=== PATIENT | female | born 1950 | race Two or more races ===

== ENCOUNTER 2024-06-13 16:43 | Inpatient (IN) | payer MEDICARE, MEDICAID, SELFPAY ==
[2024-06-13] VITALS (14 sets, daily range): BP systolic 91–124; BP diastolic 55–82; PULSE 107–166; RESP 18–27; TEMP 38.1–39.1; O2SAT 89–100; BMI 35.6
--- NOTE | 2024-06-13 16:54 | EKG_ITS ---
[facility], [place] Test Date: 2024-06-13 Pat Name: LAYTON ROA Department: Room: - Gender: Female Application Coordinator: : 1950 Requested By: Dolores Trevino Order Number: [id number] Reading MD: Dolores Trevino Measurements Intervals [place] Rate: 162 P: HI: QRS: 41 QRSD: 76 T: -69 QT: 247 QTc: 406 Interpretive Statements ATRIAL FIBRILLATION WITH RAPID VENTRICULAR RESPONSE ST DEVIATION AND MODERATE T-WAVE ABNORMALITY, CONSIDER INFERIOR ISCHEMIA [-0.1+ mV T WAVE IN II/aVF] Compared to ECG 11/12/2021 15:39:57 Possible ischemia now present T-wave abnormality still present /store/S0/[id number]/ecg/[id number].pdf
--- NOTE | 2024-06-13 16:54 | XR_ITS ---
Examination: AP chest single view Technique one AP portable semiupright chest single view Exam date and time: June 13, 2024 Comparison November 12, 2021 INDICATIONS: Onset chest pain today. FINDINGS: Mild enlargement cardiac contour Significant vascular congestion. No lobar pneumonia. Prominent osteopenia IMPRESSION: Mild heart failure
--- NOTE | 2024-06-13 17:01 | EDNOTE_ITS ---
ED General RME/HPI General Chief complaint: Arrhythmia/Palpitations Stated complaint: TACHYCARDIA Time Seen by Provider: 06/13/24 16:54 Arrival date/time: 06/13/24 16:43 RME / HPI RME / HPI narrative: DR. CLEARY MAIN ED EVALUATION: 73 year old female with past medical history significant for chronic atrial fibrillation on Eliquis, hypertension, hypothyroidism, schizoaffective disorder, CAD, COPD, type II diabetes mellitus presents to the Emergency Department [facility] with complaint of palpitations. Patient coming in from [facility] for tachycardia after albuterol was given. Related Data Home Medications ?Medication ?Instructions ?Recorded ?Confirmed divalproex 500 mg tablet,delayed 1,000 mg PO QDAY BIPOLAR #0 mg 08/13/13 12/18/21 release (Depakote) levothyroxine 75 mcg tablet 75 mcg PO QAM THYROID ##0 08/13/13 12/18/21 aspirin 325 mg tablet 325 mg PO QDAY HEART #0 tabs 08/05/14 12/18/21 bisacodyl 10 mg rectal suppository 10 mg MS Q72H PRN Constipation #0 10/07/14 12/18/21 ea magnesium hydroxide 400 mg/5 mL 30 ml PO Q72H PRN CONSTIPATION #0 10/07/14 12/18/21 oral suspension (Milk of Magnesia) mL aripiprazole 10 mg tablet (Abilify) 10 mg PO QDAY 10/02/19 12/18/21 hydrocodone 5 mg-acetaminophen 325 1 tab PO Q6H PRN Pain 10/02/19 12/18/21 mg tablet acetaminophen 325 mg tablet 325 mg PO Q6H PRN Pain 04/30/21 12/18/21 apixaban 2.5 mg tablet (Eliquis) 2.5 mg PO BID 10/21/21 12/18/21 furosemide 20 mg tablet (Lasix) 20 mg PO BID 10/21/21 12/18/21 sodium phosphates 19 gram-7 118 ml MS Q72H PRN Constipation 11/12/21 12/18/21 gram/118 mL enema (Fleet Enema) losartan 25 mg tablet 25 mg PO QDAY 12/18/21 12/18/21 metoprolol tartrate 50 mg tablet 50 mg PO BID 12/18/21 12/18/21 Previous Rx's ?Medication ?Instructions ?Recorded ipratropium 0.5 mg-albuterol 3 mg 3 ml INH Q4H PRN shortness of 10/04/19 (2.5 mg base)/3 mL nebulization breath or wheezing #15 mL soln rosuvastatin 40 mg tablet 40 mg PO .qhs #30 tabs 10/29/21 calcium acetate 667 mg tablet 667 mg PO QDAY #5 tabs 12/20/21 (Calphron) Allergies Allergy/AdvReac Type Severity Reaction Status Date / Time iodine Allergy Severe IODINE Verified 06/13/24 17:28 CONTRAST - SWELLS LIKE A STRAWBERRY Review of Systems Review of Systems Systems Reviewed: All systems reviewed, normal except as documented Narrative Review of Systems: GEN: No fever, no chills, no weight loss EYES: No discharge, no visual changes, no pain HEENT: No ear pain, no congestion, no sore throat PULM: No shortness of breath, no cough, no congestion CV: No chest pain, no dyspnea on exertion, + palpitations GI: No nausea, no vomiting, no diarrhea, no pain, no constipation : No frequency, no urgency and no dysuria MUSC/SKEL: No joint pain, no back pain SKIN: No rash PSYCH: No hallucinations, no depression HEME/LYMPH: No easy bleeding or bruising tendencies NEURO: No weakness, no headache Past Medical History Past Medical History NEUROLOGIC: Positive Neurological Disorders, Cerebrovascular Accident and Dementia CARDIAC: Positive Cardiac Disorders, Hypercholesterolemia and Hypertension; Negative Congestive Heart Failure RESPIRATORY: Positive Chronic Obstructive Pulmonary Disease (COPD); Negative Asthma GASTROINTESTINAL: Negative Gastrointestinal Disorders GENITOURINARY: Negative Genitourinary Disorders or Renal Disease REPRODUCTIVE: Negative Pelvic Inflammatory Disease MUSCULOSKELETAL: Positive Musculoskeletal Disorders, Arthritis, Osteoporosis, Degenerative Disk Disease and Fractures ENDOCRINE: Positive Endocrine Disorders, Diabetes Mellitus Type 2 and Hypothyroidism; Negative Diabetes Mellitus Type 1 HEMATOLOGIC: Negative Sickle Cell Disease PSYCHO/SOCIAL: Positive Psychiatric Problems, Schizophrenia, Bipolar Disorder and Behavior Problems OTHER HISTORY: Positive Hospitalization; Negative Organ Transplant Surgical History SURGICAL: Negative Cardiac Surgery, Endocrine Surgery, Thyroidectomy, Ear Surgery, Abdominal Surgery, Nephrectomy, Joint Replacement, Neurologic Surgery, Mastectomy or Organ Transplant Social History SMOKING STATUS: Unknown if ever smoked ED Exam Narrative Physical exam: GENERAL APPEARANCE: alert and oriented, well-developed, well-nourished, no acute distress; febrile, 102.4 F. VITALS: All vitals were reviewed and the pulse ox is 98% on 6 L/min via a nasal cannula HEENT: Normocephalic, atraumatic; pupils equal, round, reactive to light; EOMI; mucous membranes pink, moist; oropharynx clear NECK: Supple LUNGS: CTABL; no wheezes, no rales, no rhonchi HEART: Tachycardic, 156; normal S1, S2; no murmurs ABDOMEN: non distended; normal BS; soft, no tenderness, no guarding, no rebound; no masses, no organomegaly, no hernia BACK: no CVA tenderness EXTREMITIES: atraumatic; no edema NEUROLOGIC: awake; alert; cranial nerves II-XII grossly intact PSYCHIATRIC: appropriate mood and affect SKIN: warm, dry, normal color; no rashes Course Course Course Narrative: 1726: Sepsis alert initiated. Orders made at this time are congruent with ED Adult Sepsis Order List. Re-evaluation is to be completed. 1754: Fluids started. 1824: Sepsis reassessment performed consisting of lab review, vitals, physical exam including auscultation of heart, lungs, and visual evaluation of capillary refills, mucosal membranes and extremities. 1800: Patient was signed out to Dr. Santos. Past medical, surgical, social and family history reviewed. Vitals and home medications reviewed. Results and treatment plan discussed. They will assume the care of the patient at this time and will follow the patient, pending diagnostic tests and final disposition. Quality Measures none Orders Category Date Time Status Bedside COVID-19 Antigen Test NOW Care 06/13/24 16:54 Active Bedside Influenza A&B Antigen Test NOW Care 06/13/24 16:54 Active Outpatient Scheduler NOW Care 06/13/24 16:54 Active EKG (ED ONLY) *Do not use* NOW Care 06/13/24 16:54 Completed EKG (ED Only) Stat Exams 06/13/24 16:54 Draft XR chest 1V portable Stat Exams 06/13/24 16:54 Completed B-Type Natriuretic Peptide Stat Lab 06/13/24 17:15 Completed Blood Culture (Lab) Stat Lab 06/13/24 17:10 Received CBC Stat Lab 06/13/24 17:15 Completed Comprehensive Metabolic Panel Stat Lab 06/13/24 17:15 Completed Lactate (Lactic Acid) Stat Lab 06/13/24 17:15 Results Lipase Stat Lab 06/13/24 17:15 Completed Magnesium Stat Lab 06/13/24 17:15 Completed Partial Thromboplastin Time Stat Lab 06/13/24 17:15 Completed Procalcitonin Stat Lab 06/13/24 17:15 Completed Prothrombin Time with INR Stat Lab 06/13/24 17:15 Completed Troponin I Stat Lab 06/13/24 17:15 Completed Urinalysis Stat Lab 06/13/24 16:54 Ordered Urine Culture Stat Lab 06/13/24 16:54 Ordered Acetaminophen Tab [Tylenol ES Tab] Med 06/13/24 17:03 Discontinued 1,000 mg PO X1 ONE Sodium Chloride 0.9% 1000 ml [Ns] 1,000 ml Med 06/13/24 16:54 Discontinued IV 999 mls/hr Vital Signs Vital signs: Vital Signs Temperature 102.4 F H 06/13/24 16:54 Pulse Rate 156 H 06/13/24 16:54 Respiratory Rate 20 06/13/24 16:54 Blood Pressure 122/80 06/13/24 16:54 Pulse Oximetry (%) 98 06/13/24 16:54 Oxygen Delivery Method Nasal Cannula 06/13/24 16:54 Oxygen Flow Rate 6 06/13/24 16:54 [facility] Patient data External records reviewed:: [facility] previous records (Reviewed last admission discharge dated 12/21/21, patient admitted for the following: Right groin mass, Sepsis secondary to UTI, Bipolar 1 disorder) and EMS form Clinical information provided by:: patient and EMS Social determinants that could affect healthcare access:: housing ([facility]) Patient has the following chronic illnesses:: chronic atrial fibrillation on Eliquis, hypertension, hypothyroidism, schizoaffective disorder, CAD, COPD, type II diabetes mellitus How is presenting disease/condition affected by chronic disease/condition?: e xacerbated by Evaluation data The following diagnostics were reviewed and interpreted by me:: lab results, radiology exam(s) and EKG tracing(s) Lab and/or radiology exams considered but not ordered:: none Interpretation Summary: Procedure(s): XR chest 1V portable Accession Number(s): [id number] cc: Hasmukh Ko MD; Dolores Cleary MD; Munir Lopez MD~ Examination: AP chest single view Technique one AP portable semiupright chest single view Exam date and time: June 13, 2024 Comparison November 12, 2021 INDICATIONS: Onset chest pain today. FINDINGS: Mild enlargement cardiac contour Significant vascular congestion. No lobar pneumonia. Prominent osteopenia IMPRESSION: Mild heart failure Dictated By: Hasmukh Ko MD Medications Medications considered but not ordered:: none Medication administrations:: Medication Administration History Discontinued Medications Acetaminophen (Acetaminophen 500 Mg Tablet) 1,000 mg PO X1 ONE Stop: 06/13/24 17:04 Sodium Chloride (Ns) 1,000 mls @ 999 mls/hr IV .Q1H1M ONE Stop: 06/13/24 17:54 see above Consultations Consultation(s) initiated? (list below): No Diagnosis Differential Diagnosis ED Complaint MDM: cardiac arrhythmias, anxiety, secondary effect to medication Most likely diagnosis given after review of the tests above:: No official diagnoses at this time, still pending diagnostic tests. Patient signout to the shift boss provider. Admission Indicated Admission indicated?: not indicated Explain why admission is indicated or not indicated:: No final disposition plan at this time, still pending diagnostic tests. Patient signout to the shift boss provider. Admission Request Was there a request for admission?: No Disposition Plan Disposition Plan: other (specify) (Patient signout to the shift boss provider. ) Medical Decision Making Differential Diagnosis Differential Diagnosis: cardiac arrhythmias, anxiety, secondary effect to medication Lab Data 06/13/24 17:15 06/13/24 17:15 Labs: Lab Results 06/13/24 Range/Units 17:15 WBC 10.5 (3.6-11.0) Thou/mm3 RBC 3.33 L (4.00-5.20) Miln/mm3 Hgb 11.5 L (12.0-16.0) g/dL Hct 35.3 L (36.0-46.0) % MCV 106 H (80-100) fL MCH 34.5 (25.0-35.0) pg MCHC 32.6 (31.0-37.0) g/dl RDW Std Deviation 55.8 H (36.4-46.3) fL Plt Count 92 L (140-440) Thou/mm3 Neut % (Auto) 82 H (37-80) % Lymph % (Auto) 11 (10-50) % [place] % (Auto) 5 (0-12) % Eos % (Auto) 0 (0-10) % Baso % (Auto) 0 (0-2.5) % Neut # (Auto) 8.6 H (1.8-7.7) Thou/mm3 Lymph # (Auto) 1.2 (1.0-4.8) Thou/mm3 [place] # (Auto) 0.5 (0.0-0.8) Thou/mm3 Eos # (Auto) 0.0 (0.0-0.5) Thou/mm3 Baso # (Auto) 0.0 (0.0-0.2) Thou/mm3 Immature Gran # (Auto) 0.14 H (0.00-0.00) Thou/mm3 Absolute Nucleated RBC 0.02 H (0.00-0.00) Thou/mm3 Immature Gran % 1 H (0-0) % Nucleated RBC % 0 (0) /100 WBC PT 12.3 H (9.0-12.2) Seconds INR 1.1 (0.9-1.3) APTT 30.8 (22.0-36.0) Seconds Sodium 134 L (136-145) mMol/L Potassium 3.9 (3.4-5.1) mMol/L Chloride 97 L (98-107) mMol/L Carbon Dioxide 28.8 (20.0-31.0) mMol/L Anion Gap 8 (7-16) BUN 20 (9-23) mg/dL Creatinine 0.7 (0.6-1.3) mg/dL Estim Creat Clear Calc Not Performed. eGFR > 60 (60 - ) See Note BUN/Creatinine Ratio 29 H (12-20) Ratio Glucose 144 H (74-106) mg/dL Calculated Osmolality 273 L (275-295) Lactic Acid 2.7 H (0.4-2.0) mMol/L Calcium 9.0 (8.3-10.6) mg/dL Corrected Calcium 9.1 (8.5-10.1) mg/dL Magnesium 2.1 (1.6-2.6) mg/dL Total Bilirubin 0.9 (0.3-1.2) mg/dL AST 14 (0-34) U/L ALT < 7 L (10-49) U/L Alkaline Phosphatase 64 (46-116) U/L Troponin I < 0.020 (0.0-0.045) ng/mL B-Natriuretic Peptide 212 H (0-100) pg/mL Total Protein 7.1 (5.7-8.2) gm/dL Albumin 3.9 (3.4-4.8) gm/dL Globulin 3.2 (2.3-3.5) gm/dL Albumin/Globulin Ratio 1.2 (1.2-2.2) Lipase 28 (12-53) U/L Procalcitonin 0.21 (0.0-0.49) ng/ml Critical Care Time Critical Care Time Critical Care Time: Yes Total Critical Care Time (min.): 30 Attestation: For sepsis The high probability of sudden, clinically significant deterioration in the patient?s condition required the highest level of my preparedness to intervene urgently. The services I provided to this patient were to treat and/or prevent clinically significant deterioration. Services included the following: chart data review, reviewing nursing notes and/or old charts, documentation time, golf tournament consultant collaboration regarding findings and treatment options, medication orders and management, direct patient care, vital sign assessments and ordering, interpreting and reviewing diagnostic studies and lab tests. Aggregate critical care time includes only time during which I was engaged in work directly related to the patient?s care, as described above, whether at bedside or elsewhere in the Emergency Department. It did not include time spent performing other reported procedures or the services of residents, students, nurses or physician assistants. Discharge Plan Prescriptions/Referrals Prescriptions/Med Rec: No Action divalproex [Depakote] 500 MG tablet,delayed release (DR/EC) 1,000 mg PO QDAY Qty: 0 Rx Instructions: TAKE 2 TABLETS BY MOUTH ONE TIME A DAY FOR BIPOLAR DISORDER levothyroxine 75 mcg Tablet 75 mcg PO QAM Qty: 0 aspirin 325 MG tablet 325 mg PO QDAY Qty: 0 magnesium hydroxide [Milk of Magnesia] 30 ML/CUP suspension 30 ml PO Q72H PRN (Reason: CONSTIPATION) Qty: 0 bisacodyl 10 mg Suppository 10 mg MS Q72H PRN (Reason: Constipation) Qty: 0 Rx Instructions: Insert 10 mg rectally every 72 hours as needed for constipation if MOM ineffective- give as 1 suppository aripiprazole [Abilify] 10 mg Tablet 10 mg PO QDAY hydrocodone-acetaminophen 5-325 mg Tablet 1 tab PO Q6H PRN (Reason: Pain) Rx Instructions: Give 1 tablet by mouth every 6 hours as needed for breakthrough pain (level 4-10) (Acetaminophen not to exceed 3gm/24hrs) ipratropium-albuterol 0.5 mg-3 mg(2.5 mg base)/3 mL Solution For Nebulization 3 ml INH Q4H PRN (Reason: shortness of breath or wheezing) Qty: 15 0RF losartan 25 mg tablet 25 mg PO QDAY metoprolol tartrate 50 mg tablet 50 mg PO BID calcium acetate [Calphron] 667 mg tablet 667 mg PO QDAY Qty: 5 0RF acetaminophen 325 mg Tablet 325 mg PO Q6H PRN (Reason: Pain) furosemide [Lasix] 20 mg Tablet 20 mg PO BID Eliquis 2.5 mg Tablet 2.5 mg PO BID rosuvastatin 40 mg tablet 40 mg PO .qhs Qty: 30 0RF Fleet Enema 19-7 gram/118 mL Enema 118 ml MS Q72H PRN (Reason: Constipation) Referrals: Munir Lopez MD [Primary Care Provider] - In 1 week Patient/Caregiver Discharge Instructions Print Language: Georgian
[2024-06-13 17:26] LABS: Lactate (Lactic Acid) 2.7 mMol/L (0.4-2.0)
[2024-06-13 17:27] LABS: Basophils % (Auto) 0 % (0-2.5); Eosinophils % (Auto) 0 % (0-10); Hematocrit 35.3 % (36.0-46.0); Hemoglobin 11.5 g/dL (12.0-16.0); Immature Granulocytes % (Auto) 1 % (0-0); Immature Granulocytes Auto 0.14 Thou/mm3 (0.00-0.00); Lymphocytes # (Auto) 1.2 Thou/mm3 (1.0-4.8); Lymphocytes % (Auto) 11 % (10-50); Mean Corpuscular HGB Conc 32.6 g/dl (31.0-37.0); Mean Corpuscular Hemoglobin 34.5 pg (25.0-35.0); Mean Corpuscular Volume 106 fL (80-100); Monocytes # (Auto) 0.5 Thou/mm3 (0.0-0.8); Monocytes % (Auto) 5 % (0-12); Neutrophils # (Auto) 8.6 Thou/mm3 (1.8-7.7); Neutrophils % (Auto) 82 % (37-80); Nucleated Red Blood Cell # 0.02 Thou/mm3 (0.00-0.00); Nucleated Red Blood Cell % 0 /100 WBC (0); Platelet Count 92 Thou/mm3 (140-440); RDW Standard Deviation 55.8 fL (36.4-46.3); Red Blood Count 3.33 Miln/mm3 (4.00-5.20); White Blood Count 10.5 Thou/mm3 (3.6-11.0)
--- NOTE | 2024-06-13 17:30 | PC.NURSE ---
PT BIBA FOR HIGH HR AFTER [facility] PT PRESENTS HERE WITH AFIB RVR AND HIGH TEMP. PT IS SLIGHTLY CONFUSED AND REPEATING WORDS WHEN SPEAKING TO HER. PT IS BEDBOUND [facility] 14. SEPSIS ALERT INITIATED AND ROMEO ASSESSING PT. NEW ORDERS GIVEN.
[2024-06-13 17:45] LABS: INR 1.1 (0.9-1.3); Partial Thromboplastin Time 30.8 Seconds (22.0-36.0); Prothrombin Time 12.3 Seconds (9.0-12.2)
[2024-06-13 17:53] LABS: B-Type Natriuretic Peptide 212 pg/mL (0-100)
[2024-06-13 18:07] LABS: Alanine Aminotransferase < 7 U/L (10-49); Albumin, Serum 3.9 gm/dL (3.4-4.8); Albumin/Globulin Ratio 1.2 (1.2-2.2); Alkaline Phosphatase 64 U/L (46-116); Anion Gap 8 (7-16); Aspartate Amino Transferase 14 U/L (0-34); BUN/Creatinine Ratio 29 Ratio (12-20); Bilirubin,Total 0.9 mg/dL (0.3-1.2); Blood Urea Nitrogen 20 mg/dL (9-23); Calcium (Corrected) 9.1 mg/dL (8.5-10.1); Carbon Dioxide 28.8 mMol/L (20.0-31.0); Chloride 97 mMol/L (98-107); Creatinine (Component) 0.7 mg/dL (0.6-1.3); Globulin 3.2 gm/dL (2.3-3.5); Glucose 144 mg/dL (74-106); Lipase 28 U/L (12-53); Magnesium 2.1 mg/dL (1.6-2.6); Osmolality,Calculated 273 (275-295); Potassium 3.9 mMol/L (3.4-5.1); Procalcitonin 0.21 ng/ml (0.0-0.49); Sodium 134 mMol/L (136-145); Total Protein 7.1 gm/dL (5.7-8.2); Troponin I < 0.020 ng/mL (0.0-0.045); eGFR > 60 See Note
[2024-06-13 18:17] LABS: Collection Type, Urine Clean Catch
[2024-06-13] MEDS: ACETAMINOPHEN 500 MG TABLET 1000 MG PO (18:17)
[2024-06-13] MEDS: SODIUM CHLORIDE 0.9% 1000 ML 1,000 ML 999 ML IV (18:17)
--- NOTE | 2024-06-13 18:17 | PD.EDADDENDU ---
Emergency Room Addendum <Neeru Gomez - Last Filed: 06/13/24 21:54> Addendum Narrative: 1800: Care assumed from Dr. Cleary, the previous shift emergency physician. Past medical, surgical, social and family history reviewed. Vitals and home medications reviewed. I will assume the care of the patient at this time, pending diagnostic tests and final disposition. Please refer to the emergency department record for history and examination from initial visit.? Physical exam by me shows patient under no acute distress at this time. EKG: Dated 06/13/2024 at 1723 hours. Interpreted by me: atrial fibrillation, rate 162, atrial fibrillation with RVR, ST-T wave changes in V 4-5. RADIOLOGY Procedure(s): XR chest 1V portable Accession Number(s): [id number] cc: Hasmukh Ko MD; Dolores Cleary MD; Munir Lopez MD~ Examination: AP chest single view Technique one AP portable semiupright chest single view Exam date and time: June 13, 2024 Comparison November 12, 2021 INDICATIONS: Onset chest pain today. FINDINGS: Mild enlargement cardiac contour Significant vascular congestion. No lobar pneumonia. Prominent osteopenia IMPRESSION: Mild heart failure Dictated By: Hasmukh Ko MD <Shanita Basilio - Last Filed: 06/14/24 00:28> Addendum Narrative: 1800: Care assumed from Dr. Cleary, the previous shift emergency physician. Past medical, surgical, social and family history reviewed. Vitals and home medications reviewed. I will assume the care of the patient at this time, pending diagnostic tests and final disposition. Please refer to the emergency department record for history and examination from initial visit.? Physical exam by me shows patient under no acute distress at this time. EKG: Dated 06/13/2024 at 1723 hours. Interpreted by me: atrial fibrillation, rate 162, atrial fibrillation with RVR, ST-T wave changes in V 4-5. 2145: Discussed case with [Dr. Coronado] from Hospitalist service regarding admission. Discussed patients ED course, exam findings, labs, and radiology results. The Hospitalist [agrees] to accept the patient for admission. RADIOLOGY Procedure(s): XR chest 1V portable Accession Number(s): [id number] cc: Hasmukh Ko MD; Dolores Cleary MD; Munir Lopez MD~ Examination: AP chest single view Technique one AP portable semiupright chest single view Exam date and time: June 13, 2024 Comparison November 12, 2021 INDICATIONS: Onset chest pain today. FINDINGS: Mild enlargement cardiac contour Significant vascular congestion. No lobar pneumonia. Prominent osteopenia
[2024-06-13 18:40] LABS: Bilirubin,Urine Negative (Negative); Blood,Urine Trace (Negative); Clarity,Urine Clear (Clear/Hazy); Color,Urine Yellow (Lt Yel-Yel); Glucose, Urine Negative (Negative); Ketones,Urine Trace (Negative); Leukocyte Esterase,Urine Negative (Negative); Nitrite,Urine Negative (Negative); Protein,Urine 2+ (Neg - Trace); RBC,Urine 5 /hpf (0-3); Specific Gravity,Urine 1.026 (1.001-1.035); Squamous Epithelial Cell,Urine 1 /hpf (0-5); WBC,Urine 3 /hpf (0-5)
[2024-06-13 20:24] LABS: Reflex Lactate? Y
[2024-06-13 20:58] LABS: Lactic Acid, 3 HR 1.4 mMol/L (0.4-2.0)
--- NOTE | 2024-06-13 21:27 | PC.NURSE ---
Informed MD Raman of pt being in AFIB RVR with a HR rate of 125-150's and BP 124/76. New orders of cardizem 5mg ivp verbally given by .
[2024-06-13] MEDS: DILTIAZEM INJ 5 MG/ML VIAL 5 ML IV (21:36)
--- NOTE | 2024-06-13 21:58 | ESHP_ITS ---
Documentation for date of: 06/13/24 HPI History of Present Illness Chief complaint: Tachycardia History of present illness: HPI: Patient is a poor historian and resident of [facility]. Majority of history obtained from chart review and her nurse at rehab facility. 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 According to patient's nurse from the SNF today patient had generalized weakness and was assessed by the respiratory therapist at the facility. The heart team at the facility thought the patient had a cardiac wheeze and administered an albuterol nebulization. Subsequently patient developed tachycardia with rates in the 160s?170s. ED course: BP 107/55, pulse 130, RR 22, temp 102.4 F, SpO2 98% on 4 L by NC. Labs significant for Hb 11.5, HCT 35.3, PLT 92, CL 97. Influenza A positive. Urinalysis significant for 2+ protein. EKG significant for A-fib with RVR, rate 162. No acute ST elevation or depression Chest x-ray significant for bilateral pulmonary edema and cardiomegaly. In the ED patient received diltiazem 15 Mg IV x 1, acetaminophen 1000 mg p.o. x 1, normal saline 1 L IV fluid bolus. Patient will be admitted for treatment and management of A-fib with RVR secondary to influenza A infection. Review of Systems Review of Systems ROS Unobtainable: unobtainable due to mental status Past Medical History Past Medical History Comments PMH COMMENT: Past medical history: ? COPD ? Essential hypertension ? Atrial fibrillation on Eliquis ? Schizoaffective disorder ? Hypothyroidism Medication list: ?DuoNebs ? Folic acid ? Ferrous sulfate ? Depakote 250 Mg p.o. 3 times daily ? Promethazine ? [place] 5/325 ? Calcium acetate ? Eliquis 5 Mg p.o. twice daily ? Losartan 25 Mg p.o. daily ? Metoprolol tartrate 50 Mg p.o. twice daily ? Metformin 500 Mg p.o. twice daily ? Rosuvastatin 40 Mg p.o. at bedtime ? Lasix 20 Mg p.o. 3 times daily ? Aspirin 325 p.o. daily ? Levothyroxine 75 mcg p.o. daily Allergies: Iodine: Swells like a strawberry Social history: Patient is a resident at [facility] rehab. At baseline patient's nurse from the rehab reports that her condition waxes and wanes. Some days she stays asleep all day in bed, other days she is more alert but only oriented to person at baseline. She does not walk or use a wheelchair. At baseline she is bedbound. Exam Vital Signs Temp Pulse Resp BP Pulse Ox O2 Del Method O2 Flow Rate 100.6 F H 134 H 23 H 107/55 L 98 Nasal Cannula 4 06/13/24 20:00 06/13/24 21:36 06/13/24 20:00 06/13/24 21:36 06/13/24 20:00 06/13/24 20:00 06/13/24 20:00 Narrative Exam Constitutional Alert, oriented x 1[person] and somnolent. Obese, elderly female HEENT Vision grossly intact. Patent nares. Trachea midline Respiratory Chest normal on inspection and clear auscultation bilaterally Cardiovascular S1 and S2 audible, RRR. No murmurs carotid bruit. JVD not assessed Abdominal Soft,obese and non tender to palpation in all quadrants. BS + Genitourinary No bladder tenderness, no flank pain. Normal to palpation. Musculoskeletal Extremities tone within normal limits. Trace LE edema. Neurological CN II - XII grossly intact. Extremity motor and sensation grossly intact. Skin Warm, dry and intact. No obvious bruising, but right groin firmer to palpation than left Psychiatric Patient has good affect, is cooperative Results: Labs 06/13/24 17:15 06/13/24 17:15 Labs: Short CBC 06/13/24 Range/Units 17:15 WBC 10.5 (3.6-11.0) Thou/mm3 Hgb 11.5 L (12.0-16.0) g/dL Hct 35.3 L (36.0-46.0) % Plt Count 92 L (140-440) Thou/mm3 BMP 06/13/24 17:15 Sodium 134 L Potassium 3.9 Chloride 97 L Carbon Dioxide 28.8 BUN 20 Creatinine 0.7 Glucose 144 H Calcium 9.0 Cardiac Enzymes 06/13/24 Range/Units 17:15 Troponin I < 0.020 (0.0-0.045) ng/mL Liver Function 06/13/24 Range/Units 17:15 Total Bilirubin 0.9 (0.3-1.2) mg/dL AST 14 (0-34) U/L ALT < 7 L (10-49) U/L Alkaline Phosphatase 64 (46-116) U/L Albumin 3.9 (3.4-4.8) gm/dL Urine 06/13/24 Range/Units 18:00 Urine Color Yellow (Lt Yel-Yel) Urine Clarity Clear (Clear/Hazy) Urine pH 7.0 (5.0-7.0) Ur Specific Gem 1.026 (1.001-1.035) Urine Protein 2+ A (Neg - Trace) Urine Glucose (UA) Negative (Negative) Quality Measures Quality Measures none Advance care planning discussed with:: patient Medications Home Medications and Allergies Home Medications ?Medication ?Instructions ?Recorded ?Confirmed ?Type levothyroxine 75 mcg tablet 75 mcg PO QAM THYROID ##0 08/13/13 06/14/24 History aspirin 325 mg tablet 325 mg PO QDAY HEART #0 tabs 08/05/14 06/14/24 History bisacodyl 10 mg rectal suppository [address] Q72H PRN Constipation #0 10/07/14 06/14/24 History ea magnesium hydroxide 400 mg/5 mL 30 ml PO Q72H PRN CONSTIPATION #0 10/07/14 06/14/24 History oral suspension (Milk of Magnesia) mL hydrocodone 5 mg-acetaminophen 325 1 tab PO Q6H PRN Pain 10/02/19 06/14/24 History mg tablet acetaminophen 325 mg tablet 650 mg PO Q6H PRN Pain 04/30/21 06/14/24 History furosemide 20 mg tablet (Lasix) 20 mg PO BID 10/21/21 06/14/24 History sodium phosphates 19 gram-[address] Q72H PRN Constipation 11/12/21 06/14/24 History gram/118 mL enema (Fleet Enema) losartan 25 mg tablet 25 mg PO QDAY 12/18/21 06/14/24 History metoprolol tartrate 50 mg tablet 50 mg PO BID 12/18/21 06/14/24 History apixaban 5 mg tablet (Eliquis) 5 mg PO BID 06/14/24 06/14/24 History calcium acetate 667 mg tablet 667 mg PO TID 06/14/24 06/14/24 History (Calphron) cyanocobalamin (vitamin B-12) 2,000 mcg PO QDAY 06/14/24 06/14/24 History 1,000 mcg capsule divalproex 250 mg tablet,extended 250 mg PO TID 06/14/24 06/14/24 History release 24 hr (Depakote ER) ferrous sulfate 27 mg iron tablet 25 mg PO BID 06/14/24 06/14/24 History folic acid 1 mg tablet 1 mg PO QDAY 06/14/24 06/14/24 History ipratropium 0.5 mg-albuterol 3 mg 3 ml INH [id number] PRN shortness of 06/14/24 06/14/24 History (2.5 mg base)/3 mL nebulization breath or wheezing soln metformin 500 mg tablet 500 mg PO BID 06/14/24 06/14/24 History nystatin 100,000 unit/gram topical 1 applic topical QDAY 06/14/24 06/14/24 History powder promethazine-DM 6.25 mg-15 mg/5 mL 5 ml PO Q6H PRN Cough 06/14/24 06/14/24 History oral syrup rosuvastatin 40 mg tablet 40 mg PO HS 06/14/24 06/14/24 History Allergies Allergy/AdvReac Type Severity Reaction Status Date / Time iodine Allergy Severe IODINE Verified 06/13/24 17:28 CONTRAST - SWELLS LIKE A STRAWBERRY Visit Medications Discontinued Medications Acetaminophen (Acetaminophen 500 Mg Tablet) 1,000 mg PO X1 ONE Stop: 06/13/24 17:04 Last Admin: 06/13/24 18:17 Dose: 1,000 mg Diltiazem HCl (Diltiazem Inj 5 Mg/Ml Vial 5 Ml) 5 mg IV X1 ONE Stop: 06/13/24 21:31 Last Admin: 06/13/24 21:36 Dose: 5 mg Sodium Chloride (Ns) 1,000 mls @ 999 mls/hr IV .Q1H1M ONE Stop: 06/13/24 17:54 Last Infusion: 06/13/24 20:25 Dose: Infused Sodium Chloride (Ns) 500 mls @ 999 mls/hr IV .Q31M ONE Stop: 06/13/24 21:45 Assessment & Plan Plan Patient is a 73-year-old female with a past medical history significant for COPD not on home O2, essential hypertension, atrial fibrillation on Eliquis, schizoaffective disorder, hypothyroidism and 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 Patient will be admitted for treatment and management of A-fib with RVR secondary to influenza A infection. 1. Atrial fibrillation with RVR?chronic persistent on Eliquis 2. Influenza A infection Patient received albuterol nebulization at a rehab today and developed tachycardia On admission patient EKG significant for A-fib with RVR, rate 162. No acute ST elevation or depression. Home anticoagulation Eliquis 5 Mg p.o. twice daily as well as aspirin 325 Mg p.o. daily. [id number]; 11.2% stroke risk per year [age, female, CHF, HTN, stroke, DM] HAS-BLED : 4 points; high risk for major bleeding [age, meds, stroke, HTN] Patient received diltiazem 15 Mg IV x 1 in the ED Patient's heart rate still in the 160s, will give a dose of metoprolol XL 100 Mg p.o. x 1 Plan: ? Telemetry monitoring ? Started on oseltamivir 75 Mg p.o. twice daily for influenza A infection ? Resume anticoagulation with home dose Eliquis 5 Mg p.o. twice daily ? Metoprolol XL 100 Mg p.o. x 1 ? Resume home rate control metoprolol tartrate 50 Mg p.o. twice daily ? Patient has chronic persistent A-fib, therefore rhythm control not recommended at this point. ? Transthoracic echocardiogram ordered to assess for wall motion abnormalities, valvular defects and ejection fraction. ? Dr. Kadeem Valencia consulted and is closely following the case. Appreciate recommendations 3. COPD not on home O2 Patient on DuoNebs as needed at home. Plan: ? Will avoid nebulizations at this point as patient presented with A-fib RVR due to albuterol nebulization. 4. Essential hypertension On admission BP 122/80. Home medication furosemide 20 Mg p.o. twice daily Plan: ? Resumed home medication furosemide 20 Mg p.o. daily 5. [id number] type II 6. Hyperlipidemia Home medication metformin 500 Mg p.o. twice daily, rosuvastatin 40 Mg p.o. at bedtime No recent HbA1c on file Plan: ? Low carb consistent diet ? HbA1c, lipid panel - Insulin sliding scale to cover for blood glucose spikes 7. Hypothyroidism Home medication levothyroxine 75 mcg p.o. daily Plan: ? TSH, free T4 ordered ? Resumed home medication levothyroxine 75 mcg p.o. daily 8. Schizoaffective disorder At baseline patient waxes and wanes some days she sleeps all day. Other days she is more alert but only oriented to person Patient's home medication Depakote 250 Mg p.o. 3 times daily Plan: ? Resumed home medication Depakote 250 Mg p.o. 3 times daily 9. Chronic CVA 10. Pathological left femur fracture with contracture of bilateral ankles Patient was on aspirin 325 mg p.o. daily as prophylaxis dose. CT brain completed on 11/12/2021 findings include: Old infarct right caudate nucleus, left basal ganglia and right frontal lobe. Plan: ? Discontinued ASA 325 Mg p.o. daily ? Started on ASA 81 Mg p.o. daily as study showed no increased benefits of stroke prophylaxis in higher dose aspirin but did have a higher GI bleed profile. 11. Normocytic anemia 12. Thrombocytopenia On admission Hb 11.5, PLT 92 Most likely multifactorial, including medication side effect [Depakote], chronic high-dose aspirin use, poor oral intake and possible nutritional deficiencies. Plan: ? Monitor on CBC. Health maintenance: Disposition: Rate control, influenza treatment. Cardio consult Diet: low consistent carb, cardiac Lines: pIVs GI Prophylaxis: None Thrombo Prophylaxis: Apixaban and ASA Code status: FULL CODE Plan of care discussed with Attending Dr. Cliff Garcia MD PGY 1 Attending Provider Attestation/Addendum Pt was evaluated and plan formulated together with the housestaff team. I have reviewed the residents note above and agree with most of its content. Please refer to the residents note for additional details. A 73-year-old female presented to the ER with the chief complaint of palpitations. The patient was unwilling to provide history. According to the nursing staff at the [facility], the patient developed tachycardia after receiving albuterol. On further evaluation, the patient was noted to have a fever and atrial fibrillation with rapid ventricular response. Associated symptoms include a fever of 102.4?F and a heart rate of 156 bpm. The patient has a past medical history of dementia, chronic atrial fibrillation on Eliquis, hypertension, coronary artery disease, chronic obstructive pulmonary disease, type II diabetes mellitus, obesity, hypothyroidism, and schizoaffective disorder. She is on an extensive medication regimen, including Ipratropium-Albuterol, Eliquis, Losartan, Metoprolol, Levothyroxine, and Metformin, among others. In the Emergency Department, initial vital signs were notable for a temperature of 102.4?F, heart rate of 156 bpm, respiratory rate of 20, and blood pressure of 122/80 mmHg. Interventions included administration of Cardizem for rate control. Laboratory results revealed WBC 10.5, hemoglobin 11.5, platelets 92, sodium 134, chloride 97, glucose 144, and lactic acid 2.7, which decreased to 1.4 on repeat testing. BNP was 212. Imaging studies demonstrated mild heart failure on chest X-ray. EKG confirmed A-fib with rapid ventricular response. A bedside influenza A test was positive. The patient was admitted for further management.
[2024-06-13] MEDS: cefTRIAXone/D5w 1gm IV premix 50 ML IV (22:52)
[2024-06-13] MEDS: OSELTAMIVIR 75 MG CAPSULE PO (22:52)
[2024-06-13] MEDS: DILTIAZEM INJ 5 MG/ML VIAL 5 ML 10 MG IV (22:56)
[2024-06-13] MEDS: AZITHROMYCIN INJ 500 MG in SODIUM CHLORIDE 0.9% 250 ML 250 ML 250 MG IV (23:09)
[2024-06-14] VITALS (18 sets, daily range): BP systolic 89–155; BP diastolic 56–105; PULSE 85–165; RESP 18–27; TEMP 36.1–36.8; O2SAT 91–97; BMI 37.1; BMI 37.4
[2024-06-14] MEDS: METOPROLOL SUCCINATE XL 25 MG TABCR 100 MG PO (01:27)
--- NOTE | 2024-06-14 01:33 | ECHO_ITS ---
Transthoracic Echo Report Ht (in): 62 Wt (lb): 195 Exam Location: Echo Lab Status: Inpatient Chief Growth Officer: Sulema Velasco Indications: Procedure Performed: BP: 110 / 83 HR: 100 Technical Quality: Technically difficult study MEASUREMENTS (Male / Female) Normal Values 2D ECHO LV Diastolic Diameter PLAX 4.0 cm 4.2 - 5.9 / 3.9 - 5.3 cm LV Systolic Diameter PLAX 2.7 cm IVS Diastolic Thickness 1.3 cm 0.6 - 1.0 / 0.6 - 0.9 cm LVPW Diastolic Thickness 1.3 cm 0.6 - 1.0 / 0.6 - 0.9 cm LV Relative Wall Thickness 0.6 LVOT Diameter 1.8 cm Aortic Root Diameter 2.7 cm LV Ejection Fraction MOD BP 44.0 % >= 55 % LV Cardiac Index MOD BP 1926.7 cm?/min?m? LV Ejection Fraction MOD 4C 52.6 % LV Cardiac Index MOD 4C 2185.6 cm?/min?m? LV Ejection Fraction 4C AL 53.3 % LV Cardiac Index 4C AL 2306.8 cm?/min?m? LV Ejection Fraction MOD 2C 37.8 % LV Cardiac Index MOD 2C 1722.6 cm?/min?m? LV Ejection Fraction 2C AL 38.8 % LV Cardiac Index 2C AL 1786.4 cm?/min?m? LA Volume Index 38.5 cm?/m? 16 - 28 cm?/m? DOPPLER AV Peak Velocity 98.0 cm/s AV Peak Gradient 3.8 mmHg AV Mean Gradient 2.0 mmHg AV Velocity Time Integral 18.4 cm AI Peak Velocity 158.0 cm/s AI Peak Gradient 10.0 mmHg AI Pressure Half Time 866.0 ms LVOT Peak Velocity 73.5 cm/s LVOT Peak Gradient 2.2 mmHg LVOT Velocity Time Integral 12.8 cm LVOT Cardiac Index 1615.3 cm?/min?m? AV Area Cont Eq vti 1.8 cm? AV Area Cont Eq pk 1.9 cm? MV Area PHT 4.3 cm? MR Peak Velocity 389.5 cm/s MR Peak Gradient 60.7 mmHg Mitral E Point Velocity 56.3 cm/s Mitral A Point Velocity 67.4 cm/s Mitral E to A Ratio 0.8 LV E' Lateral Velocity 12.2 cm/s Mitral E to LV E' Lateral Ratio 4.6 LV E' Septal Velocity 8.3 cm/s Mitral E to LV E' Septal Ratio 6.8 TR Peak Velocity 255.7 cm/s TR Peak Gradient 26.1 mmHg PV Peak Velocity 65.0 cm/s PV Peak Gradient 1.7 mmHg FINDINGS Left Ventricle Normal left ventricular size, systolic function with no obvious regional wall motion abnormalities. Mild LVH Normal left ventricular diastolic filling pattern for age. The ejection fraction is visually estimat ed at 55 %. Right Ventricle The right ventricle size is moderately increased with normal systolic function. The estimated right ventricular systolic pressure, 34 mmHg. Including RAP. Left Atrium The left atrial cavity size is moderately increased. Right Atrium The right atrial cavity size is severely increased. Atrial Septum The interatrial septum appears normal with no evidence of a shunt. Aorta The aorta is normal by two-dimensional, color flow and Doppler interrogation. Mitral Valve The mitral valve is normal by two-dimensional, color flow and Doppler interrogation. There is modera te mitral valve regurgitation, stenosis or prolapse. Aortic Valve The aortic valve is trileaflet and normal by two-dimensional, color flow and Doppler interrogation. There is mild aortic valve regurgitation. Tricuspid Valve The tricuspid valve is normal by two-dimensional, color flow and Doppler interrogation. There is no significant tricuspid valve regurgitation. Pulmonic Valve The pulmonic valve is not well visualized. There is no significant pulmonic valve regurgitation. Vessels The pulmonary artery appears normal. The inferior vena cava pulmonary and hepatic veins appear heidi l. Pericardium The pericardium is normal by two-dimensional imaging. There is no significant pericardial effusion. CONCLUSIONS Indication: Chronic persistent A-fib Normal LV size and function. Mild LVH. Estimated EF 55%. RV size is moderately increased with normal systolic function. Estimated RVSP 34 mmHg. LA cavity size is moderately enlarged. RA cavity size severly enlarged. Moderate Mitral regurgitation Mild AI and TR. Elicia Uribe (Electronically Signed) Final Date: 15 June 2024 13:15
--- NOTE | 2024-06-14 01:48 | PC.NURSE ---
notified Dr. Garcia of patients hr 140-160 afib. new order for one time dose metoprolol 100mg po. also asked for breathing treatments, paient is wheezing with coarse lung sounds. He stated they are holding off on breathing treatments as it may increase heart rate.
[2024-06-14] MEDS: METOPROLOL SUCCINATE XL 25 MG TABCR 50 MG PO (02:58)
--- NOTE | 2024-06-14 03:02 | PC.NURSE ---
at bedside assessing patient, gave another 50mg of metropolol, will monitor
--- NOTE | 2024-06-14 04:12 | PC.NURSE ---
notified Dr. Garcia of patients hr 138-168 afib rvr. will order Ana nino
[2024-06-14] MEDS: DILTIAZEM in D5W 125 MG 125 MG/125 ML BAG IV (04:33)
[2024-06-14] MEDS: LEVOTHYROXINE SODIUM 25 MCG TABLET 75 MCG PO (05:07)
[2024-06-14] MEDS: INSULIN LISPRO (AdmeLOG) 1 UNIT/0.01 ML UNIT SC ×2 (05:23→21:18)
[2024-06-14 06:13] LABS: Basophils % (Auto) 0 % (0-2.5); Eosinophils % (Auto) 0 % (0-10); Hematocrit 32.9 % (36.0-46.0); Hemoglobin 10.8 g/dL (12.0-16.0); Immature Granulocytes % (Auto) 1 % (0-0); Immature Granulocytes Auto 0.11 Thou/mm3 (0.00-0.00); Lymphocytes # (Auto) 0.5 Thou/mm3 (1.0-4.8); Lymphocytes % (Auto) 5 % (10-50); Mean Corpuscular HGB Conc 32.8 g/dl (31.0-37.0); Mean Corpuscular Hemoglobin 35.2 pg (25.0-35.0); Mean Corpuscular Volume 107 fL (80-100); Monocytes # (Auto) 0.6 Thou/mm3 (0.0-0.8); Monocytes % (Auto) 6 % (0-12); Neutrophils # (Auto) 9.3 Thou/mm3 (1.8-7.7); Neutrophils % (Auto) 88 % (37-80); Nucleated Red Blood Cell # 0.02 Thou/mm3 (0.00-0.00); Nucleated Red Blood Cell % 0 /100 WBC (0); RDW Standard Deviation 54.9 fL (36.4-46.3); Red Blood Count 3.07 Miln/mm3 (4.00-5.20); White Blood Count 10.6 Thou/mm3 (3.6-11.0)
[2024-06-14 06:49] LABS: Anion Gap 8 (7-16); BUN/Creatinine Ratio 31 Ratio (12-20); Blood Urea Nitrogen 22 mg/dL (9-23); Calcium 8.6 mg/dL (8.3-10.6); Carbon Dioxide 28.4 mMol/L (20.0-31.0); Cardiac Risk Estimate 2.4 RATIO (3.7-5.6); Chloride 99 mMol/L (98-107); Cholesterol 76 mg/dL (132-200); Creatinine (Component) 0.7 mg/dL (0.6-1.3); Estimated Creatinine Clearance 75.6 mL/min (>60); Free T4 (Free Thyroxine) 1.02 ng/dL (0.89-1.76); Glucose 152 mg/dL (74-106); HDL Cholesterol 32 mg/dL (40-60); LDL Cholesterol,Calculated 30 mg/dL (0-130); Magnesium 1.9 mg/dL (1.6-2.6); Osmolality,Calculated 276 (275-295); Potassium 4.8 mMol/L (3.4-5.1); Sodium 135 mMol/L (136-145); Thyroid Stimulating Hormone 3.76 uIU/mL (0.55-4.78); Triglycerides 69 mg/dL (30-150); eGFR > 60 See Note
[2024-06-14 07:56] LABS: Glucose Estimated Average 97 mg/dL (80-131)
[2024-06-14] MEDS: cefTRIAXone/D5w 1gm IV premix 50 ML IV (08:26)
[2024-06-14] MEDS: APIXABAN 2.5 MG TABLET PO (08:30)
[2024-06-14] MEDS: Magnesium Sulfate 4 GM Ivpb 4 GM/50 ML BAG IV (08:31)
[2024-06-14] MEDS: DILTIAZEM INJ 125 MG in DEXTROSE 5%-WATER 100 ML 10 MG IV ×2 (08:45→18:14)
--- NOTE | 2024-06-14 09:48 | PC.NURSE ---
Pt is refusing to wake up enough to safely take PO medications. When asked to open her eyes to take her pills she replies you take them and when asked to drink some water she responds I don't want any water . MDs aware of refusal when they did rounds, will attempt again in about 30 minutes
--- NOTE | 2024-06-14 10:41 | ESCONSULT_ITS ---
<Statement entered by Estephanie Valencia MD - 06/15/24 13:29> I personally examined the patient evaluated patient has multiple comorbidities came to the hospital A-fib RVR known history of chronic A-fib unable to take any oral medications somewhat obtunded and lethargic recommend continue IV diltiazem possibly changed to oral diltiazem when she is able to swallow equal and her amount of dose. 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 Patient was found to be in A-fib with RVR and cardiology was consulted for recommendations. cc:: cc: Darline Hebert DO Exam Vital Signs Temp Pulse Resp BP Pulse Ox O2 Del Method O2 Flow Rate 97.8 F 114 H 18 120/96 H 95 Oxy Mask 10 06/14/24 08:00 06/14/24 08:45 06/14/24 08:00 06/14/24 08:45 06/14/24 08:00 06/14/24 08:00 06/14/24 08:00 Narrative Exam GENERAL: NAD, asleep, noncommunicative, obese CARDIO: Heart irregularly irregular, no obvious murmurs PULM: Rales/rhonchi on auscultation bilateral lungs, currently on OxyMask GI: Abdomen soft, nondistended, no pain on palpation. BSx4 EXT: Contracted lower extremities. No edema noted. Results Labs 06/14/24 05:50 06/14/24 05:50 Labs: Short CBC 06/13/24 06/14/24 Range/Units 17:15 05:50 WBC 10.5 10.6 (3.6-11.0) Thou/mm3 Hgb 11.5 L 10.8 L (12.0-16.0) g/dL Hct 35.3 L 32.9 L (36.0-46.0) % Plt Count 92 L (140-440) Thou/mm3 BMP 06/13/24 06/14/24 17:15 05:50 Sodium 134 L 135 L Potassium 3.9 4.8 D Chloride 97 L 99 Carbon Dioxide 28.8 28.4 BUN 20 22 Creatinine 0.7 0.7 Glucose 144 H 152 H Calcium 9.0 8.6 Cardiac Enzymes 06/13/24 Range/Units 17:15 Troponin I < 0.020 (0.0-0.045) ng/mL Liver Function 06/13/24 Range/Units 17:15 Total Bilirubin 0.9 (0.3-1.2) mg/dL AST 14 (0-34) U/L ALT < 7 L (10-49) U/L Alkaline Phosphatase 64 (46-116) U/L Albumin 3.9 (3.4-4.8) gm/dL Urine 06/13/24 Range/Units 18:00 Urine Color Yellow (Lt Yel-Yel) Urine Clarity Clear (Clear/Hazy) Urine pH 7.0 (5.0-7.0) Ur Specific [place] 1.026 (1.001-1.035) Urine Protein 2+ A (Neg - Trace) Urine Glucose (UA) Negative (Negative) Quality Measures Quality Measures none Advance care planning discussed with:: patient Medications Home Medications and Allergies Home Medications ?Medication ?Instructions ?Recorded ?Confirmed ?Type levothyroxine 75 mcg tablet 75 mcg PO QAM THYROID ##0 08/13/13 06/14/24 History aspirin 325 mg tablet 325 mg PO QDAY HEART #0 tabs 08/05/14 06/14/24 History bisacodyl 10 mg rectal suppository 10 mg LA Q72H PRN Constipation #0 10/07/14 06/14/24 History ea magnesium hydroxide 400 mg/5 mL 30 ml PO Q72H PRN CONSTIPATION #0 10/07/14 06/14/24 History oral suspension (Milk of Magnesia) mL hydrocodone 5 mg-acetaminophen 325 1 tab PO Q6H PRN Pain 10/02/19 06/14/24 History mg tablet acetaminophen 325 mg tablet 650 mg PO Q6H PRN Pain 04/30/21 06/14/24 History furosemide 20 mg tablet (Lasix) 20 mg PO BID 10/21/21 06/14/24 History sodium phosphates 19 gram-7 118 ml LA Q72H PRN Constipation 11/12/21 06/14/24 History gram/118 mL enema (Fleet Enema) losartan 25 mg tablet 25 mg PO QDAY 12/18/21 06/14/24 History metoprolol tartrate 50 mg tablet 50 mg PO BID 12/18/21 06/14/24 History apixaban 5 mg tablet (Eliquis) 5 mg PO BID 06/14/24 06/14/24 History calcium acetate 667 mg tablet 667 mg PO TID 06/14/24 06/14/24 History (Calphron) cyanocobalamin (vitamin B-12) 2,000 mcg PO QDAY 06/14/24 06/14/24 History 1,000 mcg capsule divalproex 250 mg tablet,extended 250 mg PO TID 06/14/24 06/14/24 History release 24 hr (Depakote ER) ferrous sulfate 27 mg iron tablet 25 mg PO BID 06/14/24 06/14/24 History folic acid 1 mg tablet 1 mg PO QDAY 06/14/24 06/14/24 History ipratropium 0.5 mg-albuterol 3 mg 3 ml INH [id number] PRN shortness of 06/14/24 06/14/24 History (2.5 mg base)/3 mL nebulization breath or wheezing soln metformin 500 mg tablet 500 mg PO BID 06/14/24 06/14/24 History nystatin 100,000 unit/gram topical 1 applic topical QDAY 06/14/24 06/14/24 History powder promethazine-DM 6.25 mg-15 mg/5 mL 5 ml PO Q6H PRN Cough 06/14/24 06/14/24 History oral syrup rosuvastatin 40 mg tablet 40 mg PO HS 06/14/24 06/14/24 History Allergies Allergy/AdvReac Type Severity Reaction Status Date / Time iodine Allergy Severe IODINE Verified 06/13/24 17:28 CONTRAST - SWELLS LIKE A STRAWBERRY Visit Medications Acetaminophen (Acetaminophen 325 Mg Tablet) 1,000 mg PO Q6H PRN PRN Reason: Fever >100.3 or pain Stop: 07/13/24 22:12 Apixaban (Apixaban 2.5 Mg Tablet) 5 mg PO BID [facility] Stop: 07/14/24 20:59 Aspirin (Aspirin Ec 81 Mg Tabec) 81 mg PO QDAY [facility] Stop: 07/14/24 08:59 Last Admin: 06/14/24 08:30 Dose: 81 mg Atorvastatin Calcium (Atorvastatin Calcium 20 Mg Tablet) 40 mg PO HS [facility] Stop: 07/14/24 20:59 Dextrose (Dextrose 50%-Water Inj 50 Ml Syringe) 50 ml IV Q15MIN PRN PRN Reason: BG <50 OR BG <70 & pt unresponsive Stop: 07/14/24 02:06 Divalproex Sodium (Divalproex Sod Ec 125 Mg Tabec) 250 mg PO TID [facility] Stop: 07/14/24 05:59 Furosemide (Furosemide 20 Mg Tablet) 20 mg PO QAM [facility] Stop: 07/14/24 08:59 Last Admin: 06/14/24 08:30 Dose: 20 mg Glucagon (Glucagon Inj 1 Mg Vial) 1 mg IM Q15MIN PRN PRN Reason: BG <70, and no IV access Ceftriaxone Sodium/Dextrose (Rocephin/D5w 1gm Iv Premix) 50 mls @ 100 mls/hr IV QDAY [facility] Stop: 06/20/24 22:15 Last Admin: 06/14/24 08:26 Dose: 100 mls/hr Azithromycin 500 mg/ Sodium (Chloride) 250 mls @ 250 mls/hr IV QDAY@2100 [facility] Stop: 06/21/24 20:59 Magnesium Sulfate (Magnesium Sulfate Ivpb) 4 gm in 50 mls @ 12.5 mls/hr IV X1 ONE Stop: 06/14/24 12:00 Last Infusion: 06/14/24 09:14 Dose: 12.5 mls/hr Diltiazem HCl 125 mg/ Dextrose 125 mls @ 10 mls/hr IV .[id number] [facility]; Protocol Stop: 07/14/24 08:06 Last Admin: 06/14/24 08:45 Dose: 10 mg/hr, 10 mls/hr Insulin Human Lispro (Insulin Lispro (Admelog) 1 Unit/0.01 Ml Unit) 0 unit SC TIDACHS [facility]; Protocol Stop: 07/14/24 10:44 Ipratropium O'Brien (Ipratropium Rt 0.5 Mg/ 2.5 Ml Nebu) 0.5 mg INH Q6HR PRN PRN Reason: SHORTNESS OF BREATH Stop: 07/14/24 08:07 Ipratropium O'Brien (Ipratropium Rt 0.5 Mg/ 2.5 Ml Nebu) 0.5 mg INH Q6HRRT [facility] Stop: 07/14/24 12:59 Ipratropium O'Brien (Ipratropium Rt 0.5 Mg/ 2.5 Ml Nebu) 0.5 mg INH Q4HR PRN PRN Reason: Shortness Of Breath Stop: 07/14/24 13:59 Levalbuterol HCl (Levalbuterol Rt 1.25 Mg/0.5 Ml Nebu) 1.25 mg INH Q6HR [facility] Stop: 07/14/24 11:59 Levalbuterol HCl (Levalbuterol Rt 1.25 Mg/0.5 Ml Nebu) 1.25 mg INH Q4HR PRN PRN Reason: WHEEZING Stop: 07/14/24 10:30 Levothyroxine Sodium (Levothyroxine Sodium 25 Mcg Tablet) 75 mcg PO ACBR [facility] Stop: 07/14/24 05:59 Last Admin: 06/14/24 05:07 Dose: 75 mcg Losartan Potassium (Losartan Potassium 25 Mg Tablet) 25 mg PO QDAY [facility] Stop: 07/14/24 08:59 Last Admin: 06/14/24 08:30 Dose: 25 mg Magnesium Hydroxide (Milk Of Magnesia Susp 30 Ml Udc) 30 ml PO QDAY PRN; Protocol PRN Reason: Constipation > 3 days Stop: 07/14/24 01:49 Metoprolol Tartrate (Metoprolol Tartrate 25 Mg Tablet) 50 mg PO BID [facility] Stop: 07/14/24 08:59 Last Admin: 06/14/24 08:29 Dose: 50 mg Oseltamivir Phosphate (Oseltamivir 75 Mg Capsule) 75 mg PO BID [facility] Stop: 06/20/24 22:14 Last Admin: 06/14/24 08:29 Dose: 75 mg Sennosides (Senna Tablet) 1 tab PO QDAY [facility]; Protocol Stop: 07/14/24 08:59 Last Admin: 06/14/24 08:30 Dose: 1 tab Sodium Chloride (Saline Nasal 45 Ml Btl) 1 spray NASAL PRN PRN PRN Reason: CONGESTION Stop: 07/14/24 02:55 Sodium Chloride (Sodium Chloride Rt Shraddha 0.9% 3 Ml Nebu) 3 ml INH PRN PRN PRN Reason: SOLN Stop: 07/14/24 10:29 Sodium Chloride (Sodium Chloride Rt Shraddha 0.9% 3 Ml Nebu) 3 ml INH PRN PRN PRN Reason: SOLN Stop: 07/14/24 10:30 Sodium Chloride (Sodium Chloride Rt Shraddha 0.9% 3 Ml Nebu) 3 ml INH PRN PRN PRN Reason: SOLN Stop: 07/14/24 10:33 Discontinued Medications Acetaminophen (Acetaminophen 500 Mg Tablet) 1,000 mg PO X1 ONE Stop: 06/13/24 17:04 Last Admin: 06/13/24 18:17 Dose: 1,000 mg Acetaminophen (Acetaminophen 325 Mg Tablet) 650 mg PO Q6H PRN PRN Reason: Fever >101.5 Stop: 07/13/24 22:12 Apixaban (Apixaban 2.5 Mg Tablet) 5 mg PO BID [facility] Stop: 07/14/24 08:59 Apixaban (Apixaban 2.5 Mg Tablet) 2.5 mg PO BID [facility] Stop: 07/14/24 08:59 Last Admin: 06/14/24 08:30 Dose: 2.5 mg Aspirin (Aspirin 325 Mg Tablet) 325 mg PO QDAY [facility] Stop: 07/14/24 08:59 Diltiazem HCl (Diltiazem Inj 5 Mg/Ml Vial 5 Ml) 5 mg IV X1 ONE Stop: 06/13/24 21:31 Last Admin: 06/13/24 21:36 Dose: 5 mg Diltiazem HCl (Diltiazem Inj 5 Mg/Ml Vial 5 Ml) 10 mg IV X1 ONE Stop: 06/13/24 22:55 Last Admin: 06/13/24 22:56 Dose: 10 mg Sodium Chloride (Ns) 1,000 mls @ 999 mls/hr IV .Q1H1M ONE Stop: 06/13/24 17:54 Last Infusion: 06/13/24 20:25 Dose: Infused Sodium Chloride (Ns) 500 mls @ 999 mls/hr IV .Q31M ONE Stop: 06/13/24 21:45 Sodium Chloride (Ns) 1,000 mls @ 75 mls/hr IV .[id number] [facility] Stop: 07/13/24 22:14 Last Admin: 06/13/24 22:49 Dose: Not Given Azithromycin 500 mg/ Sodium (Chloride) 250 mls @ 250 mls/hr IV X1 ONE Stop: 06/13/24 23:29 Last Infusion: 06/14/24 01:12 Dose: Infused Diltiazem HCl (Diltiazem In D5w 125 Mg) 125 mg in 125 mls @ 5 mls/hr IV .Q24H [facility] Stop: 07/14/24 04:07 Last Admin: 06/14/24 04:33 Dose: 5 mg/hr, 5 mls/hr Insulin Human Lispro (Insulin Lispro (Admelog) 1 Unit/0.01 Ml Unit) 0 unit SC Q6HR [facility]; Protocol Stop: 07/14/24 05:59 Last Admin: 06/14/24 05:23 Dose: 1 unit Levalbuterol HCl (Levalbuterol Rt 1.25 Mg/0.5 Ml Nebu) 1.25 mg INH X1 ONE Stop: 06/14/24 10:31 Levalbuterol HCl (Levalbuterol Rt 1.25 Mg/0.5 Ml Nebu) 1.25 mg INH Q6HRRT PRN PRN Reason: WHEEZING Stop: 07/14/24 10:30 Methylprednisolone Sodium Succinate (Methylprednisolone Sod Succ 62.5 Mg/Ml 2ml Vial) 125 mg IVP X1 ONE Stop: 06/14/24 10:30 Metoprolol Succinate (Metoprolol Succinate Xl 25 Mg Tabcr) 100 mg PO X1 ONE Stop: 06/14/24 01:14 Last Admin: 06/14/24 01:27 Dose: 100 mg Metoprolol Succinate (Metoprolol Succinate Xl 25 Mg Tabcr) 50 mg PO X1 ONE Stop: 06/14/24 02:53 Last Admin: 06/14/24 02:58 Dose: 50 mg Assessment & Plan Plan 73-year-old female with a past medical history significant for COPD not on home O2, essential hypertension, atrial fibrillation on Eliquis, schizoaffective disorder, hypothyroidism and 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 Patient will be admitted for treatment and management of A-fib with RVR secondary to influenza A infection. #Atrial fibrillation with RVR?chronic persistent on Eliquis Patient currently in A-fib rate controlled with diltiazem drip Echo from 2021 shows EF 55% Keep potassium above 4 and magnesium above 2 Change patient to metoprolol succinate 100 mg daily Continue with Eliquis Repeat cardiac echo #Influenza A infection #Acute hypoxic respiratory failure 3. COPD not on home O2 4. Essential hypertension 5. [id number] type II 6. Hyperlipidemia 7. Hypothyroidism 8. Schizoaffective disorder 9. Chronic CVA 10. 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 Normocytic anemia 12. Thrombocytopenia Continue management per primary team Case discussed with attending director of strategic communications Dr. Erik Castellanos MD PGY3
[2024-06-14 11:19] LABS: Platelet Count 76 Thou/mm3 (140-440)
[2024-06-14] MEDS: MethylPREDNISolone SOD SUCC 62.5 MG/ML 2ML VIAL 125 MG IVP (11:20)
[2024-06-14 11:21] LABS: Slide Review Platelets confirmed
--- NOTE | 2024-06-14 13:21 | PC.SS ---
[employer]ACTS CONSERVATOR conducted phone contact with the patient?s daughter, Rubina Gore ; to conduct initial assessment and to discuss discharge planning. 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 Patient has been at facility for approximately 11 years. Patient possesses a history of COPD and schizoaffective disorder. Patient is bed bound. Patient does not utilize oxygen at facility. Patient requires assistance with completion of ADL?s. Patient?s medical surrogate decision maker is daughter, Rubina Gore. Patient?s PCP is Dr. Lopez. Patient?s beam press operator is Dr. Chaney. Patient is diabetic. Patient does not participate with dialysis. Discharge plan is for the patient to return to [facility]. Patient possesses coverage for ambulance transport. No further intervention required at this time, health and social care teacher will be available to address any further concerns. Next of Kin: Rubina Gore D/C Plan: SNF
--- NOTE | 2024-06-14 13:36 | ESPR_ITS ---
Documentation for date of: 06/14/24 Senior resident attestation: Patient evaluated and examined at the bedside, plan of care discussed with rest of the team including my attending physician, except as noted. The patient is a 73-year-old female with a past medical history of COPD, hypertension and A-fib on Eliquis, she is affective disorder left foot fracture and contractures of bilateral lower extremities was admitted to the hospital for A-fib with RVR, likely secondary to influenza infection. #A-fib RVR?on Dilt drip increased to 5 mg/h to 10 mg/h to improve rate control, cardiology consulted, recommended metoprolol 100 mg daily. Continue home Eliquis 5 mg twice daily for anticoagulation. #COPD exacerbation?lev albuterol and ipratropium, azithromycin for anti- inflammatory benefits #Influenza A pneumonia?continue Tamiflu for 20 to 5 days added ceftriaxone for empiric coverage of superimposed bacterial pneumonia #Diabetes mellitus?sliding scale insulin #Schizoaffective disorder?resume home medication Depakote #CVA?old?continue aspirin 81 daily Quresh PGY2 Subjective Subjective Interval history: Patient seen today at the bedside found asleep, irritated, did not want to communicate with me. No overnight events reported. Vital signs significant for tachycardia with rate in the 130s. On examination wheezing and crackles were noted bilaterally auscultation. Patient currently on diltiazem drip was increased from 5 mg to 10 mg. Spoke to cardiology team recommended starting patient on metoprolol succinate 100 mg daily. Levalbuterol Anuprep Tropium was added scheduled and as needed. Exam Vital Signs Temp Pulse Resp BP Pulse Ox O2 Del Method O2 Flow Rate 97.6 F 101 H 27 H 110/83 96 Oxy Mask 2 06/14/24 12:00 06/14/24 12:00 06/14/24 12:06/14/24 12:00 06/14/24 12:00 06/14/24 12:06/14/24 12:00 Narrative Exam Physical Exam GENERAL: NAD, asleep, noncommunicative, obese HEENT: Moist mucosa. Eyes open, symmetrical, & clear CARDIO: Heart irregularly irregular, no obvious murmurs PULM: No noted coughing/dyspnea bilateral crackles and wheezes GI: Abdomen soft, nondistended, no pain on palpation. BSx4 SKIN/MSK/EXT: Bilateral lower extremities contractures at the ankles, no pain on palpation. Pedal pulses present B/L NEURO: AAOx3, no focal neuro deficits Objective Labs 06/15/24 05:28 06/15/24 05:28 Labs: Laboratory Results - last 24 hr 06/13/24 06/13/24 06/13/24 17:15 18:00 20:29 WBC 10.5 RBC 3.33 L Hgb 11.5 L Hct 35.3 L MCV 106 H MCH 34.5 MCHC 32.6 RDW Std Deviation 55.8 H Plt Count 92 L Neut % (Auto) 82 H Lymph % (Auto) 11 [place] % (Auto) 5 Eos % (Auto) 0 Baso % (Auto) 0 Neut # (Auto) 8.6 H Lymph # (Auto) 1.2 [place] # (Auto) 0.5 Eos # (Auto) 0.0 Baso # (Auto) 0.0 Immature Gran # (Auto) 0.14 H Absolute Nucleated RBC 0.02 H Immature Gran % 1 H Nucleated RBC % 0 PT 12.3 H INR 1.1 APTT 30.8 Sodium 134 L Potassium 3.9 Chloride 97 L Carbon Dioxide 28.8 Anion Gap 8 BUN 20 Creatinine 0.7 Estim Creat Clear Calc Not Performed. eGFR > 60 BUN/Creatinine Ratio 29 H Glucose [address] Glu mg/dL Hemoglobin A1c Calculated Osmolality 273 L Lactic Acid 2.7 H 1.4 Calcium 9.0 Corrected Calcium 9.1 Magnesium 2.1 Total Bilirubin 0.9 AST 14 ALT < 7 L Alkaline Phosphatase 64 Troponin I < 0.020 B-Natriuretic Peptide 212 H Total Protein 7.1 Albumin 3.9 Globulin 3.2 Albumin/Globulin Ratio 1.2 Triglycerides Cholesterol LDL Cholesterol, Calc HDL Cholesterol Cholesterol/HDL Ratio Lipase 28 Procalcitonin 0.21 TSH Free T4 Ur Collection Type Clean Catch Urine Color Yellow Urine Clarity Clear Urine pH 7.0 Ur Specific [place] 1.026 Urine Protein 2+ A Urine Glucose (UA) Negative Urine Ketones Trace Urine Blood Trace Urine Nitrite Negative Urine Bilirubin Negative Urine Urobilinogen (Auto) 2.0 Ur Leukocyte Esterase Negative Urine RBC 5 H Urine WBC 3 Ur Squamous Epith Cells 1 Urine Bacteria None Misc Test Result 06/14/24 05:50 WBC 10.6 RBC 3.07 L Hgb 10.8 L Hct 32.9 L MCV 107 H MCH 35.2 H MCHC 32.8 RDW Std Deviation 54.9 H Plt Count 76 L Neut % (Auto) 88 H Lymph % (Auto) 5 L [place] % (Auto) 6 Eos % (Auto) 0 Baso % (Auto) 0 Neut # (Auto) 9.3 H Lymph # (Auto) 0.5 L [place] # (Auto) 0.6 Eos # (Auto) 0.0 Baso # (Auto) 0.0 Immature Gran # (Auto) 0.11 H Absolute Nucleated RBC 0.02 H Immature Gran % 1 H Nucleated RBC % 0 PT INR APTT Sodium 135 L Potassium 4.8 D Chloride 99 Carbon Dioxide 28.4 Anion Gap 8 BUN 22 Creatinine 0.7 Estim Creat Clear Calc 75.6 eGFR > 60 BUN/Creatinine Ratio 31 H Glucose [address] Glu mg/dL 97 Hemoglobin A1c 5.0 Calculated Osmolality 276 Lactic Acid Calcium 8.6 Corrected Calcium Magnesium 1.9 Total Bilirubin AST ALT Alkaline Phosphatase Troponin I B-Natriuretic Peptide Total Protein Albumin Globulin Albumin/Globulin Ratio Triglycerides 69 Cholesterol 76 L LDL Cholesterol, Calc 30 HDL Cholesterol 32 L Cholesterol/HDL Ratio 2.4 L Lipase Procalcitonin TSH 3.76 Free T4 1.02 Ur Collection Type Urine Color Urine Clarity Urine pH Ur Specific [place] Urine Protein Urine Glucose (UA) Urine Ketones Urine Blood Urine Nitrite Urine Bilirubin Urine Urobilinogen (Auto) Ur Leukocyte Esterase Urine RBC Urine WBC Ur Squamous Epith Cells Urine Bacteria Misc Test Result Platelets confirmed Quality Measures Quality Measures none Advance care planning discussed with:: patient Assessment & Plan Assessment Current Active Medications: Generic Name Dose Route Start Last Admin Trade Name Freq PRN Reason Stop Dose Admin Acetaminophen 1,000 mg 06/14/24 01:25 Acetaminophen 325 Mg Tablet PO 07/13/24 22:12 Q6H PRN Fever >100.3 or pain Apixaban 5 mg 06/14/24 21:00 Apixaban 2.5 Mg Tablet PO 07/14/24 20:59 BID ENZO Aspirin 81 mg 06/14/24 09:00 06/14/24 09:50 Aspirin Ec 81 Mg Tabec PO 07/14/24 08:59 Not Given QDAY [facility] Atorvastatin Calcium 40 mg 06/14/24 21:00 Atorvastatin Calcium 20 Mg Tablet PO 07/14/24 20:59 HS ENZO Dextrose 50 ml 06/14/24 02:07 Dextrose 50%-Water Inj 50 Ml Syringe IV 07/14/24 02:06 Q15MIN PRN BG <50 OR BG <70 & pt unresponsive Divalproex Sodium 250 mg 06/14/24 14:00 Divalproex Sod Ec 125 Mg Tabec PO 07/14/24 13:59 TID ENZO Furosemide 20 mg 06/14/24 09:00 06/14/24 09:50 Furosemide 20 Mg Tablet PO 07/14/24 08:59 Not Given QAM ENZO Glucagon 1 mg 06/14/24 02:07 Glucagon Inj 1 Mg Vial IM Q15MIN PRN BG <70, and no IV access Ceftriaxone Sodium/Dextrose 50 mls @ 100 mls/hr 06/13/24 22:16 06/14/24 08:26 Rocephin/D5w 1gm Iv Premix IV 06/20/24 22:15 100 mls/hr QDAY ENZO Administration Azithromycin 500 mg/ Sodium 250 mls @ 250 mls/hr 06/14/24 21:00 Chloride IV 06/21/24 20:59 QDAY@2100 ENZO Diltiazem HCl 125 mg/ Dextrose 125 mls @ 10 mls/hr 06/14/24 08:15 06/14/24 08:45 IV 07/14/24 08:06 10 mg/hr .[id number] ENZO 10 mls/hr Administration Protocol 10 MG/HR Insulin Human Lispro 0 unit 06/14/24 10:45 06/14/24 11:17 Insulin Lispro (Admelog) 1 Unit/0.01 Ml Unit SC 07/14/24 10:44 Not Given TIDACHS [facility] Protocol Ipratropium [place] 0.5 mg 06/14/24 13:00 Ipratropium Rt 0.5 Mg/ 2.5 Ml Nebu INH 07/14/24 12:59 Q6HRRT ENZO Ipratropium [place] 0.5 mg 06/14/24 10:36 Ipratropium Rt 0.5 Mg/ 2.5 Ml Nebu INH 07/14/24 13:59 Q4HR PRN Shortness Of Breath Levalbuterol HCl 1.25 mg 06/14/24 12:00 Levalbuterol Rt 1.25 Mg/0.5 Ml Nebu INH 07/14/24 11:59 Q6HR ENZO Levalbuterol HCl 1.25 mg 06/14/24 10:36 Levalbuterol Rt 1.25 Mg/0.5 Ml Nebu INH 07/14/24 10:30 Q4HR PRN WHEEZING Levothyroxine Sodium 75 mcg 06/14/24 06:00 06/14/24 05:07 Levothyroxine Sodium 25 Mcg Tablet PO 07/14/24 05:59 75 mcg ACBR ENZO Administration Losartan Potassium 25 mg 06/14/24 09:00 06/14/24 09:50 Losartan Potassium 25 Mg Tablet PO 07/14/24 08:59 Not Given QDAY ENZO Magnesium Hydroxide 30 ml 06/14/24 01:50 Milk Of Magnesia Susp 30 Ml Udc PO 07/14/24 01:49 QDAY PRN Constipation > 3 days Protocol Metoprolol Tartrate 50 mg 06/14/24 09:00 06/14/24 09:50 Metoprolol Tartrate 25 Mg Tablet PO 07/14/24 08:59 Not Given BID ENZO Oseltamivir Phosphate 75 mg 06/13/24 22:15 06/14/24 09:50 Oseltamivir 75 Mg Capsule PO 06/20/24 22:14 Not Given BID ENZO Sennosides 1 tab 06/14/24 09:00 06/14/24 09:50 Senna Tablet PO 07/14/24 08:59 Not Given QDAY [facility] Protocol Sodium Chloride 1 spray 06/14/24 02:56 Saline Nasal 45 Ml Btl NASAL 07/14/24 02:55 PRN PRN CONGESTION Sodium Chloride 3 ml 06/14/24 10:34 Sodium Chloride Rt Shradd[place] 0.9% 3 Ml Nebu INH 07/14/24 10:33 PRN PRN SOLN Plan 73-year-old female with a past medical history significant for COPD not on home O2, essential hypertension, atrial fibrillation on Eliquis, schizoaffective disorder, hypothyroidism and 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 Patient will be admitted for treatment and management of A-fib with RVR secondary to influenza A infection. #Atrial fibrillation with RVR?chronic persistent on Eliquis #Influenza A infection Patient on rehab received nebulization treatment and started developing tachycardia EKG shows atrial fibrillation with rapid ventricular response rate in the 160s however no ST elevations or depressions noted [id number]; 11.2% stroke risk per year [age, female, CHF, HTN, stroke, DM] HAS-BLED : 4 points; high risk for major bleeding [age, meds, stroke, HTN] In the ED received diltiazem 15 Mg IV x 1 in the ED Rate currently in the 130s -Diltiazem drip increased to 10 mg -Started on metoprolol succinate 100 mg daily as per cardiology recommendations -On Eliquis 5 mg twice daily -Pending echo -Cardiology Dr. Valencia consulted, appreciate recommendations -On Tamiflu #COPD not on home O2 Patient on DuoNebs as needed at home. -On levalbuterol and ipratropium scheduled and as needed #Essential hypertension On admission BP 122/80. Home medication furosemide 20 Mg p.o. twice daily ? Resumed home medication furosemide 20 Mg p.o. daily #Fah-dulusuy-jjuojnktl type II #Hyperlipidemia Home medication metformin 500 Mg p.o. twice daily, rosuvastatin 40 Mg p.o. at bedtime A1c 5.0, lipid panel within normal limits -SSI -Hypoglycemia protocol in place #Hypothyroidism Home medication levothyroxine 75 mcg p.o. daily TSH and free T4 within normal limits ? Resumed home medication levothyroxine 75 mcg p.o. daily #Schizoaffective disorder At baseline patient waxes and wanes some days she sleeps all day. Other days she is more alert but only oriented to person Patient's home medication Depakote 250 Mg p.o. 3 times daily ? Resumed home medication Depakote 250 Mg p.o. 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 daily as prophylaxis dose. CT brain completed on 11/12/2021 findings include: Old infarct right caudate nucleus, left basal ganglia and right frontal lobe. ? Started on ASA 81 Mg p.o. daily #Normocytic anemia #Thrombocytopenia On admission Hb 11.5, PLT 92 Most likely multifactorial, including medication side effect [Depakote], chronic high-dose aspirin use, poor oral intake and possible nutritional deficiencies. ? Monitor on CBC. Case discussed with my senior Dr. Hilliard PGY-[address] Emilee Richmond MD PGY-1 Disposition: Telemetry Fluids: None Feeding: Carb consistent Thrombo prophylaxis: Eliquis and aspirin Gastric Ulcer prophylaxis: None CODE STATUS: Full code Attending Provider Attestation/Addendum Darline Buckley DO, attest that I was physically present for the bender portions of the service and evaluated the patient with the resident and I reviewed and discussed the case with the resident and agree with the resident's findings and plans of care as documented above Patient seen and evaluated this AM. Per nursing, patient has been very somnolent and uncooperative. Patient does not want to take any medications. She has no complaints at time of evaluation. However, she was noted to have scattered wheezing in b/l lung pena. Patientis currently on 2L oxymask. Will give steroids due to concern for acute copd exacerbation/ Influenza A resulting in acute hypoxic respiratory failure. Continue wtih tamiflu. Titrate O2 as tolerated. Patient remains on cardizem drip for afib with RVR. Will f/u with cardiology recommendations.
--- NOTE | 2024-06-14 18:51 | PC.RT ---
PT having ECHO done at this time, svn tx not given at this time
[2024-06-14] MEDS: OSELTAMIVIR 75 MG CAPSULE PO (21:14)
[2024-06-14] MEDS: APIXABAN 2.5 MG TABLET 5 MG PO (21:14)
[2024-06-14] MEDS: ATORVASTATIN CALCIUM 20 MG TABLET 40 MG PO (21:14)
[2024-06-14] MEDS: AZITHROMYCIN INJ 500 MG in SODIUM CHLORIDE 0.9% 250 ML 250 ML 250 MG IV (21:18)
[2024-06-14] MEDS: DIVALPROEX SOD EC 125 MG TABEC 250 MG PO (21:31)
[2024-06-15] VITALS (16 sets, daily range): BP systolic 91–121; BP diastolic 42–77; PULSE 60–98; RESP 19–25; TEMP 35.9–36.3; O2SAT 91–100; BMI 37.6
[2024-06-15] MEDS: IPRATROPIUM RT 0.5 MG/ 2.5 ML NEBU INH ×5 (01:01→18:27)
[2024-06-15] MEDS: LEVALBUTEROL RT 1.25 MG/0.5 ML NEBU INH ×4 (01:01→18:27)
[2024-06-15] MEDS: DIVALPROEX SOD EC 125 MG TABEC 250 MG PO ×3 (05:17→21:31)
[2024-06-15] MEDS: LEVOTHYROXINE SODIUM 25 MCG TABLET 75 MCG PO (05:17)
[2024-06-15 06:12] LABS: Basophils % (Auto) 0 % (0-2.5); Eosinophils % (Auto) 0 % (0-10); Hemoglobin 10.7 g/dL (12.0-16.0); Immature Granulocytes % (Auto) 1 % (0-0); Immature Granulocytes Auto 0.05 Thou/mm3 (0.00-0.00); Lymphocytes # (Auto) 0.6 Thou/mm3 (1.0-4.8); Lymphocytes % (Auto) 7 % (10-50); Mean Corpuscular HGB Conc 32.4 g/dl (31.0-37.0); Mean Corpuscular Hemoglobin 34.9 pg (25.0-35.0); Mean Corpuscular Volume 108 fL (80-100); Monocytes # (Auto) 0.3 Thou/mm3 (0.0-0.8); Monocytes % (Auto) 4 % (0-12); Neutrophils # (Auto) 7.3 Thou/mm3 (1.8-7.7); Neutrophils % (Auto) 89 % (37-80); Nucleated Red Blood Cell % 0 /100 WBC (0); RDW Standard Deviation 53.5 fL (36.4-46.3); Red Blood Count 3.07 Miln/mm3 (4.00-5.20); White Blood Count 8.3 Thou/mm3 (3.6-11.0)
[2024-06-15 06:13] LABS: Platelet Count 74 Thou/mm3 (140-440); Slide Review Platelets confirmed
[2024-06-15 06:45] LABS: Anion Gap 10 (7-16); BUN/Creatinine Ratio 35 Ratio (12-20); Blood Urea Nitrogen 38 mg/dL (9-23); Calcium 8.3 mg/dL (8.3-10.6); Carbon Dioxide 27.2 mMol/L (20.0-31.0); Chloride 99 mMol/L (98-107); Creatinine (Component) 1.1 mg/dL (0.6-1.3); Estimated Creatinine Clearance 47.3 mL/min (>60); Glucose 170 mg/dL (74-106); Magnesium 3.2 mg/dL (1.6-2.6); Osmolality,Calculated 284 (275-295); Potassium 4.9 mMol/L (3.4-5.1); Sodium 136 mMol/L (136-145); eGFR 53 See Note
[2024-06-15] MEDS: DILTIAZEM INJ 125 MG in DEXTROSE 5%-WATER 100 ML 10 MG IV (07:08)
[2024-06-15] MEDS: APIXABAN 2.5 MG TABLET 5 MG PO ×2 (10:27→20:22)
[2024-06-15] MEDS: cefTRIAXone/D5w 1gm IV premix 50 ML IV (10:27)
[2024-06-15] MEDS: ASPIRIN EC 81 MG TABEC PO (10:27)
[2024-06-15] MEDS: METOPROLOL SUCCINATE XL 25 MG TABCR 100 MG PO (10:28)
[2024-06-15] MEDS: LOSARTAN POTASSIUM 25 MG TABLET PO (10:29)
[2024-06-15] MEDS: OSELTAMIVIR 75 MG CAPSULE PO ×2 (10:30→21:38)
[2024-06-15] MEDS: Furosemide 20 MG TABLET PO (10:31)
[2024-06-15] MEDS: INSULIN LISPRO (AdmeLOG) 1 UNIT/0.01 ML UNIT SC ×3 (11:44→20:36)
[2024-06-15 12:16] LABS: Allen Test Performed/OK; Base Excess 0 (-3-3); HCO3 26 mEq/L (20-26); Inspired O2, VO2 Liters 3 L/min; O2 Saturation 95 % (91-98); PCO2 47 mmHg (32.0-48.0); PO2 71 mmHg (83-108); Puncture Site Left Radial; pH, Arterial 7.35 (7.35-7.45)
[2024-06-15] MEDS: SENNA TABLET 1 TAB PO (13:05)
--- NOTE | 2024-06-15 13:43 | PD.RESPRO ---
Documentation for date of: 06/15/24 Senior resident attestation: Patient evaluated and examined at the bedside, plan of care discussed with rest of the team including my attending physician, except as noted. The patient is a 73-year-old female with a past medical history of COPD, hypertension and A-fib on Eliquis, she is affective disorder left foot fracture and contractures of bilateral lower extremities was admitted to the hospital for A-fib with RVR, likely secondary to influenza infection. #A-fib RVR?on Dilt drip increased to 5 mg/h to 10 mg/h to improve rate control, cardiology consulted, As heart rate has remained stable diltiazem drip has been discontinued, currently on metoprolol succinate 100 mg daily, recommended metoprolol 100 mg daily. Continue home Eliquis 5 mg twice daily for anticoagulation. #COPD exacerbation?lev albuterol and ipratropium, azithromycin for anti-inflammatory benefits #Influenza A pneumonia?continue Tamiflu for 20 to 5 days added ceftriaxone for empiric coverage of superimposed bacterial pneumonia #Diabetes mellitus?sliding scale insulin #Schizoaffective disorder?resume home medication Depakote #CVA?old?continue aspirin 81 daily Quresh PGY2 Subjective Subjective Interval history: Patient seen today at the bedside fine awake, alert, oriented x 3. No overnight events reported. Vital signs stable at this time. Labs noncontributory at this time. As heart rate has remained stable diltiazem drip has been discontinued, currently on metoprolol succinate 100 mg daily, however nurse reported patient becoming bradycardic, will speak to cardiology Dr. Valencia for any further recommendations. Patient on examination has bilateral rhonchi, chest physiotherapy was ordered. Exam Vital Signs Temp Pulse Resp BP Pulse Ox O2 Del Method O2 Flow Rate 96.8 F 63 25 H 94/77 98 Oxy Mask 5 06/15/24 12:00 06/15/24 12:41 06/15/24 12:41 06/15/24 12:00 06/15/24 12:41 06/15/24 12:00 06/15/24 12:41 Narrative Exam Physical Exam GENERAL: NAD, asleep, noncommunicative, obese HEENT: Moist mucosa. Eyes open, symmetrical, & clear CARDIO: Heart irregularly irregular, no obvious murmurs PULM: No noted coughing/dyspnea bilateral rhonchi GI: Abdomen soft, nondistended, no pain on palpation. BSx4 SKIN/MSK/EXT: Bilateral lower extremities contractures at the ankles, no pain on palpation. Pedal pulses present B/L NEURO: AAOx3, no focal neuro deficits Objective Labs 06/16/24 04:58 06/16/24 04:58 Labs: Laboratory Results - last 24 hr 06/15/24 06/15/24 05:28 12:07 WBC 8.3 RBC 3.07 L Hgb 10.7 L Hct 33.0 L MCV 108 H MCH 34.9 MCHC 32.4 RDW Std Deviation 53.5 H Plt Count 74 L Neut % (Auto) 89 H Lymph % (Auto) 7 L [place] % (Auto) 4 Eos % (Auto) 0 Baso % (Auto) 0 Neut # (Auto) 7.3 Lymph # (Auto) 0.6 L [place] # (Auto) 0.3 Eos # (Auto) 0.0 Baso # (Auto) 0.0 Immature Gran # (Auto) 0.05 H Absolute Nucleated RBC 0.00 Immature Gran % 1 H Nucleated RBC % 0 Puncture Site Left Radial ABG pH 7.35 ABG pCO2 47 ABG pO2 71 L ABG HCO3 26 ABG O2 Saturation 95 ABG Base Excess 0 Oxygen Liter Flow 3 Sodium 136 Potassium 4.9 Chloride 99 Carbon Dioxide 27.2 Anion Gap 10 BUN 38 H Creatinine 1.1 Estim Creat Clear Calc 47.3 L eGFR 53 L BUN/Creatinine Ratio 35 H Glucose 170 H Calculated Osmolality 284 Calcium 8.3 Magnesium 3.2 H Misc Test Result Platelets confirmed ABG Interpretation ABG results: 06/15/24 12:07 ABG pH 7.35 ABG pCO2 47 ABG pO2 71 L ABG HCO3 26 ABG O2 Saturation 95 ABG Base Excess 0 Quality Measures Quality Measures none Advance care planning discussed with:: patient Assessment & Plan Assessment Current Active Medications: Generic Name Dose Route Start Last Admin Trade Name Freq PRN Reason Stop Dose Admin Acetaminophen 1,000 mg 06/15/24 09:07 Acetaminophen 500 Mg Tablet PO 07/13/24 22:12 Q6H PRN Fever >100.3 or pain Apixaban 5 mg 06/14/24 21:00 06/15/24 10:27 Apixaban 2.5 Mg Tablet PO 07/14/24 20:59 5 mg BID ENZO Administration Aspirin 81 mg 06/14/24 09:00 06/15/24 10:27 Aspirin Ec 81 Mg Tabec PO 07/14/24 08:59 81 mg QDAY ENZO Administration Atorvastatin Calcium 40 mg 06/14/24 21:00 06/14/24 21:14 Atorvastatin Calcium 20 Mg Tablet PO 07/14/24 20:59 40 mg HS ENZO Administration Dextrose 50 ml 06/14/24 02:07 Dextrose 50%-Water Inj 50 Ml Syringe IV 07/14/24 02:06 Q15MIN PRN BG <50 OR BG <70 & pt unresponsive Divalproex Sodium 250 mg 06/14/24 14:00 06/15/24 13:39 Divalproex Sod Ec 125 Mg Tabec PO 07/14/24 13:59 250 mg TID ENZO Administration Furosemide 20 mg 06/14/24 09:00 06/15/24 10:31 Furosemide 20 Mg Tablet PO 07/14/24 08:59 20 mg QAM ENZO Administration Glucagon 1 mg 06/14/24 02:07 Glucagon Inj 1 Mg Vial IM Q15MIN PRN BG <70, and no IV access Ceftriaxone Sodium/Dextrose 50 mls @ 100 mls/hr 06/13/24 22:16 06/15/24 10:27 Rocephin/D5w 1gm Iv Premix IV 06/20/24 22:15 100 mls/hr QDAY ENZO Administration Azithromycin 500 mg/ Sodium 250 mls @ 250 mls/hr 06/14/24 21:00 06/14/24 22:45 Chloride IV 06/21/24 20:59 Infused QDAY@2100 ENZO Infusion Insulin Human Lispro 0 unit 06/14/24 10:45 06/15/24 11:44 Insulin Lispro (Admelog) 1 Unit/0.01 Ml Unit SC 07/14/24 10:44 2 unit TIDACHS ENZO Administration Protocol Ipratropium [place] 0.5 mg 06/14/24 13:00 06/15/24 12:39 Ipratropium Rt 0.5 Mg/ 2.5 Ml Nebu INH 07/14/24 12:59 0.5 mg Q6HRRT ENZO Administration Ipratropium [place] 0.5 mg 06/14/24 14:42 Ipratropium Rt 0.5 Mg/ 2.5 Ml Nebu INH 07/14/24 14:59 Q4HRRT PRN SHORTNESS OF BREATH Protocol Levalbuterol HCl 1.25 mg 06/14/24 19:00 06/15/24 12:40 Levalbuterol Rt 1.25 Mg/0.5 Ml Nebu INH 07/14/24 18:59 1.25 mg Q6HRRT ENZO Administration Levalbuterol HCl 1.25 mg 06/14/24 14:43 Levalbuterol Rt 1.25 Mg/0.5 Ml Nebu INH 07/14/24 14:59 Q4HRRT PRN WHEEZING Protocol Levothyroxine Sodium 75 mcg 06/14/24 06:00 06/15/24 05:17 Levothyroxine Sodium 25 Mcg Tablet PO 07/14/24 05:59 75 mcg ACBR ENZO Administration Losartan Potassium 25 mg 06/14/24 09:00 06/15/24 10:29 Losartan Potassium 25 Mg Tablet PO 07/14/24 08:59 25 mg QDAY ENZO Administration Magnesium Hydroxide 30 ml 06/14/24 01:50 Milk Of Magnesia Susp 30 Ml Udc PO 07/14/24 01:49 QDAY PRN Constipation > 3 days Protocol Metoprolol Succinate 100 mg 06/15/24 09:00 06/15/24 10:28 Metoprolol Succinate Xl 25 Mg Tabcr PO 07/15/24 08:59 100 mg QDAY ENZO Administration Oseltamivir Phosphate 75 mg 06/13/24 22:15 06/15/24 10:30 Oseltamivir 75 Mg Capsule PO 06/20/24 22:14 75 mg BID ENZO Administration Sennosides 1 tab 06/14/24 09:00 06/15/24 13:05 Senna Tablet PO 07/14/24 08:59 1 tab QDAY ENZO Administration Protocol Sodium Chloride 1 spray 06/14/24 02:56 Saline Nasal 45 Ml Btl NASAL 07/14/24 02:55 PRN PRN CONGESTION Sodium Chloride 3 ml 06/14/24 10:34 Sodium Chloride Rt [place] 0.9% 3 Ml Nebu INH 07/14/24 10:33 PRN PRN SOLN Plan 73-year-old female with a past medical history significant for COPD not on home O2, essential hypertension, atrial fibrillation on Eliquis, schizoaffective disorder, hypothyroidism and 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 Patient will be admitted for treatment and management of A-fib with RVR secondary to influenza A infection. #Atrial fibrillation with RVR?chronic persistent on Eliquis #Influenza A infection Patient on rehab received nebulization treatment and started developing tachycardia EKG shows atrial fibrillation with rapid ventricular response rate in the 160s however no ST elevations or depressions noted [id number]; 11.2% stroke risk per year [age, female, CHF, HTN, stroke, DM] HAS-BLED : 4 points; high risk for major bleeding [age, meds, stroke, HTN] In the ED received diltiazem 15 Mg IV x 1 in the ED Rate currently in the 130s Echo Normal LV size and function. Mild LVH. Estimated EF 55%. RV size is moderately increased with normal systolic function. Estimated RVSP 34 mmHg. LA cavity size is moderately enlarged. RA cavity size severly enlarged. Moderate Mitral regurgitation. Mild AI and TR. -Diltiazem drip discontinued -Started on metoprolol succinate 100 mg daily as per cardiology recommendations -On Eliquis 5 mg twice daily -Cardiology Dr. Valencia consulted, appreciate recommendations -On Tamiflu #COPD not on home O2 Patient on DuoNebs as needed at home. On examination bilateral rhonchi appreciated -On levalbuterol and ipratropium scheduled and as needed -Chest physiotherapy ordered -Wean off oxygen as tolerated #Essential hypertension On admission BP 122/80. Home medication furosemide 20 Mg p.o. twice daily ? Resumed home medication furosemide 20 Mg p.o. daily #Crs-[id number] type II #Hyperlipidemia Home medication metformin 500 Mg p.o. twice daily, rosuvastatin 40 Mg p.o. at bedtime A1c 5.0, lipid panel within normal limits -SSI -Hypoglycemia protocol in place #Hypothyroidism Home medication levothyroxine 75 mcg p.o. daily TSH and free T4 within normal limits ? Resumed home medication levothyroxine 75 mcg p.o. daily #Schizoaffective disorder At baseline patient waxes and wanes some days she sleeps all day. Other days she is more alert but only oriented to person Patient's home medication Depakote 250 Mg p.o. 3 times daily ? Resumed home medication Depakote 250 Mg p.o. 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 daily as prophylaxis dose. CT brain completed on 11/12/2021 findings include: Old infarct right caudate nucleus, left basal ganglia and right frontal lobe. ? Started on ASA 81 Mg p.o. daily #Normocytic anemia #Thrombocytopenia On admission Hb 11.5, PLT 92 Most likely multifactorial, including medication side effect [Depakote], chronic high-dose aspirin use, poor oral intake and possible nutritional deficiencies. ? Monitor on CBC. Case discussed with my senior Dr. Hliliard PGY-[address] Emilee Richmond MD PGY-1 Disposition: Telemetry Fluids: None Feeding: Carb consistent Thrombo prophylaxis: Eliquis and aspirin Gastric Ulcer prophylaxis: None CODE STATUS: Full code Attending Provider Attestation/Addendum Darline Buckley, , attest that I was physically present for the bender portions of the service and evaluated the patient with the resident and I reviewed and discussed the case with the resident and agree with the resident's findings and plans of care as documented above Patient seen and evaluated this AM. Patient is more alert and interactive, but does not want to eat. Cardizem drip was discontinued this morning and started on metoprolol XL 100mg PO daily. Per nursing, patient noted to have bradycardic episodes in the 40s on tele. Will f/u with cardiology regarding titrating down beta rayna if necessary. However, patient was asymptomatic during these episodes. She remains on oxymask with fluctuating O2 demand from 4L- 8L. ABG was done with P/F ratio of 280, indicating mild ARDS 2/2 influenza. Will continue with tamiflu and monitor volume status closely.
[2024-06-15] MEDS: ATORVASTATIN CALCIUM 20 MG TABLET 40 MG PO (20:23)
[2024-06-15] MEDS: AZITHROMYCIN INJ 500 MG in SODIUM CHLORIDE 0.9% 250 ML 250 ML 250 MG IV (20:24)
--- NOTE | 2024-06-15 23:29 | ESPR_ITS ---
RE: LAYTON ROA : 1950 DATE OF SERVICE: 06/15/2024 SUBJECTIVE: The patient was admitted to the hospital with multiple problems including AFib with RVR, admitted to the hospital and yesterday she was obtunded, but today she is able to take medication. She is much more alert, awake, not having any shortness of breath or chest pain. Her heart rate drops to 40s apparently, but she is now in 70s and 80s. Diltiazem will be discontinued. She did receive metoprolol, tolerating well. She is taking oral metoprolol, which should control her heart rate. Also receiving atorvastatin, aspirin, apixaban, and metoprolol dosage at 100 mg daily, which appears to be the correct dosage. Clinical examination unremarkable. OBJECTIVE: General: She is arousable, awake, not complaining of any chest pain or shortness of breath. Vital Signs: Heart rate is 90. Blood pressure is 116/70. Temperature normal. Oxygen saturation is 90%. HEENT: Head is atraumatic. Neck: Supple. Lungs: Decreased breath sounds. Heart: Heart sounds irregular. AFib. Abdomen: Thin and soft. Extremities: Evidence of chronic edema. Appears to have right-sided weakness and contracture. ASSESSMENT: Atrial fibrillation, chronic, now appears to be rate controlled. RECOMMENDATIONS: Discontinue IV diltiazem. Continue the metoprolol succinate 100 mg daily for rate control and apixaban. The rest of the medical problems to be addressed by primary team. DT: 22:41:49 TT: 23:26:00 Ref: [id number] - TID: [id number]
[2024-06-16] VITALS (14 sets, daily range): BP systolic 93–145; BP diastolic 55–83; PULSE 75–108; RESP 18–23; TEMP 36.1–36.6; O2SAT 90–100
[2024-06-16] MEDS: IPRATROPIUM RT 0.5 MG/ 2.5 ML NEBU INH ×3 (01:31→14:06)
[2024-06-16] MEDS: LEVALBUTEROL RT 1.25 MG/0.5 ML NEBU INH ×3 (01:31→14:07)
[2024-06-16] MEDS: DIVALPROEX SOD EC 125 MG TABEC 250 MG PO ×3 (05:28→21:36)
[2024-06-16] MEDS: LEVOTHYROXINE SODIUM 25 MCG TABLET 75 MCG PO (05:28)
[2024-06-16 05:37] LABS: Basophils % (Auto) 0 % (0-2.5); Eosinophils % (Auto) 0 % (0-10); Hematocrit 30.8 % (36.0-46.0); Hemoglobin 10.1 g/dL (12.0-16.0); Immature Granulocytes % (Auto) 1 % (0-0); Immature Granulocytes Auto 0.07 Thou/mm3 (0.00-0.00); Lymphocytes # (Auto) 0.6 Thou/mm3 (1.0-4.8); Lymphocytes % (Auto) 5 % (10-50); Mean Corpuscular HGB Conc 32.8 g/dl (31.0-37.0); Mean Corpuscular Hemoglobin 34.7 pg (25.0-35.0); Mean Corpuscular Volume 106 fL (80-100); Monocytes # (Auto) 0.5 Thou/mm3 (0.0-0.8); Monocytes % (Auto) 4 % (0-12); Neutrophils # (Auto) 11.4 Thou/mm3 (1.8-7.7); Neutrophils % (Auto) 90 % (37-80); Nucleated Red Blood Cell % 0 /100 WBC (0); Platelet Count 87 Thou/mm3 (140-440); RDW Standard Deviation 52.8 fL (36.4-46.3); Red Blood Count 2.91 Miln/mm3 (4.00-5.20); White Blood Count 12.6 Thou/mm3 (3.6-11.0)
[2024-06-16 06:13] LABS: Anion Gap 9 (7-16); BUN/Creatinine Ratio 39 Ratio (12-20); Blood Urea Nitrogen 54 mg/dL (9-23); Calcium 8.3 mg/dL (8.3-10.6); Carbon Dioxide 28.4 mMol/L (20.0-31.0); Chloride 99 mMol/L (98-107); Creatinine (Component) 1.4 mg/dL (0.6-1.3); Estimated Creatinine Clearance 37.4 mL/min (>60); Glucose 132 mg/dL (74-106); Magnesium 3.6 mg/dL (1.6-2.6); Osmolality,Calculated 288 (275-295); Sodium 136 mMol/L (136-145); eGFR 40 See Note
[2024-06-16] MEDS: OSELTAMIVIR 75 MG CAPSULE PO ×2 (09:10→20:15)
[2024-06-16] MEDS: SENNA TABLET 1 TAB PO (09:10)
[2024-06-16] MEDS: METOPROLOL SUCCINATE XL 25 MG TABCR 100 MG PO (09:10)
[2024-06-16] MEDS: cefTRIAXone/D5w 1gm IV premix 50 ML IV (09:10)
[2024-06-16] MEDS: ASPIRIN EC 81 MG TABEC PO (09:11)
[2024-06-16] MEDS: APIXABAN 2.5 MG TABLET 5 MG PO ×2 (09:11→20:15)
[2024-06-16] MEDS: INSULIN LISPRO (AdmeLOG) 1 UNIT/0.01 ML UNIT SC ×3 (11:32→20:18)
--- NOTE | 2024-06-16 13:50 | PD.RESPRO ---
Documentation for date of: 06/16/24 Subjective Subjective Interval history: Patient seen today at the bedside found drowsy, somnolent but, oriented x 3. No overnight events reported. Patient does not seem to want to participate on evaluation by the medicine team just wants to sleep. On examination bilateral wheezing heard on auscultation. Solu-Medrol IV 40 mg daily were added. Patient was encouraged to increase her p.o. intake as kidney function has worsened today. Patient was supposed to have started Lasix today however was hold due to SALLY. Exam Vital Signs Temp Pulse Resp BP Pulse Ox O2 Del Method O2 Flow Rate 97.1 F 81 22 H 93/71 97 Nasal Cannula 5 06/16/24 12:00 06/16/24 12:00 06/16/24 12:00 06/16/24 12:00 06/16/24 12:00 06/16/24 12:00 06/16/24 12:00 Narrative Exam Physical Exam GENERAL: NAD, asleep, noncommunicative, obese HEENT: Moist mucosa. Eyes open, symmetrical, & clear CARDIO: Heart irregularly irregular, no obvious murmurs PULM: No noted coughing/dyspnea bilateral rhonchi GI: Abdomen soft, nondistended, no pain on palpation. BSx4 SKIN/MSK/EXT: Bilateral lower extremities contractures at the ankles, no pain on palpation. Pedal pulses present B/L NEURO: AAOx3, no focal neuro deficits Objective Labs 06/16/24 04:58 06/16/24 04:58 Labs: Laboratory Results - last 24 hr 06/16/24 04:58 WBC 12.6 H D RBC 2.91 L Hgb 10.1 L Hct 30.8 L MCV 106 H MCH 34.7 MCHC 32.8 RDW Std Deviation 52.8 H Plt Count 87 L Neut % (Auto) 90 H Lymph % (Auto) 5 L [place] % (Auto) 4 Eos % (Auto) 0 Baso % (Auto) 0 Neut # (Auto) 11.4 H Lymph # (Auto) 0.6 L [place] # (Auto) 0.5 Eos # (Auto) 0.0 Baso # (Auto) 0.0 Immature Gran # (Auto) 0.07 H Absolute Nucleated RBC 0.00 Immature Gran % 1 H Nucleated RBC % 0 Sodium 136 Potassium 5.0 Chloride 99 Carbon Dioxide 28.4 Anion Gap 9 BUN 54 H Creatinine 1.4 H Estim Creat Clear Calc 37.4 L eGFR 40 L BUN/Creatinine Ratio 39 H Glucose 132 H Calculated Osmolality 288 Calcium 8.3 Magnesium 3.6 H ABG Interpretation ABG results: 06/15/24 12:07 ABG pH 7.35 ABG pCO2 47 ABG pO2 71 L ABG HCO3 26 ABG O2 Saturation 95 ABG Base Excess 0 Quality Measures Quality Measures none Advance care planning discussed with:: patient Assessment & Plan Assessment Current Active Medications: Generic Name Dose Route Start Last Admin Trade Name Freq PRN Reason Stop Dose Admin Acetaminophen 1,000 mg 06/15/24 09:07 Acetaminophen 500 Mg Tablet PO 07/13/24 22:12 Q6H PRN Fever >100.3 or pain Apixaban 5 mg 06/14/24 21:00 06/16/24 09:11 Apixaban 2.5 Mg Tablet PO 07/14/24 20:59 5 mg BID ENZO Administration Aspirin 81 mg 06/14/24 09:00 06/16/24 09:11 Aspirin Ec 81 Mg Tabec PO 07/14/24 08:59 81 mg QDAY ENZO Administration Atorvastatin Calcium 40 mg 06/14/24 21:00 06/15/24 20:23 Atorvastatin Calcium 20 Mg Tablet PO 07/14/24 20:59 40 mg HS ENZO Administration Dextrose 50 ml 06/14/24 02:07 Dextrose 50%-Water Inj 50 Ml Syringe IV 07/14/24 02:06 Q15MIN PRN BG <50 OR BG <70 & pt unresponsive Divalproex Sodium 250 mg 06/14/24 14:00 06/16/24 13:38 Divalproex Sod Ec 125 Mg Tabec PO 07/14/24 13:59 250 mg TID ENZO Administration Furosemide 20 mg 06/16/24 09:00 Furosemide Inj 10 Mg/Ml Vial 2 Ml IVP 07/16/24 08:59 QDAY ENZO Glucagon 1 mg 06/14/24 02:07 Glucagon Inj 1 Mg Vial IM Q15MIN PRN BG <70, and no IV access Ceftriaxone Sodium/Dextrose 50 mls @ 100 mls/hr 06/13/24 22:16 06/16/24 09:10 Rocephin/D5w 1gm Iv Premix IV 06/20/24 22:15 100 mls/hr QDAY ENZO Administration Azithromycin 500 mg/ Sodium 250 mls @ 250 mls/hr 06/14/24 21:00 06/15/24 20:24 Chloride IV 06/21/24 20:59 250 mls/hr QDAY@2100 ENZO Administration Insulin Human Lispro 0 unit 06/14/24 10:45 06/16/24 11:32 Insulin Lispro (Admelog) 1 Unit/0.01 Ml Unit SC 07/14/24 10:44 1 unit TIDACHS ENZO Administration Protocol Ipratropium [place] 0.5 mg 06/14/24 13:00 06/16/24 07:04 Ipratropium Rt 0.5 Mg/ 2.5 Ml Nebu INH 07/14/24 12:59 0.5 mg Q6HRRT ENZO Administration Ipratropium [place] 0.5 mg 06/14/24 14:42 Ipratropium Rt 0.5 Mg/ 2.5 Ml Nebu INH 07/14/24 14:59 Q4HRRT PRN SHORTNESS OF BREATH Protocol Levalbuterol HCl 1.25 mg 06/14/24 19:00 06/16/24 07:04 Levalbuterol Rt 1.25 Mg/0.5 Ml Nebu INH 07/14/24 18:59 1.25 mg Q6HRRT ENZO Administration Levalbuterol HCl 1.25 mg 06/14/24 14:43 Levalbuterol Rt 1.25 Mg/0.5 Ml Nebu INH 07/14/24 14:59 Q4HRRT PRN WHEEZING Protocol Levothyroxine Sodium 75 mcg 06/14/24 06:00 06/16/24 05:28 Levothyroxine Sodium 25 Mcg Tablet PO 07/14/24 05:59 75 mcg ACBR ENZO Administration Magnesium Hydroxide 30 ml 06/14/24 01:50 Milk Of Magnesia Susp 30 Ml Udc PO 07/14/24 01:49 QDAY PRN Constipation > 3 days Protocol Methylprednisolone Sodium Succinate 40 mg 06/16/24 10:45 06/16/24 10:52 Methylprednisolone Sod Succ 40 Mg Vial IVP 06/23/24 10:44 40 mg QDAY ENZO Administration Metoprolol Succinate 100 mg 06/15/24 09:00 06/16/24 09:10 Metoprolol Succinate Xl 25 Mg Tabcr PO 07/15/24 08:59 100 mg QDAY ENZO Administration Oseltamivir Phosphate 75 mg 06/13/24 22:15 06/16/24 09:10 Oseltamivir 75 Mg Capsule PO 06/20/24 22:14 75 mg BID ENZO Administration Sennosides 1 tab 06/14/24 09:00 06/16/24 09:10 Senna Tablet PO 07/14/24 08:59 1 tab QDAY ENZO Administration Protocol Sodium Chloride 1 spray 06/14/24 02:56 Saline Nasal 45 Ml Btl NASAL 07/14/24 02:55 PRN PRN CONGESTION Sodium Chloride 3 ml 06/14/24 10:34 Sodium Chloride Rt Shradd[place] 0.9% 3 Ml Nebu INH 07/14/24 10:33 PRN PRN SOLN Plan 73-year-old female with a past medical history significant for COPD not on home O2, essential hypertension, atrial fibrillation on Eliquis, schizoaffective disorder, hypothyroidism and 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 Patient will be admitted for treatment and management of A-fib with RVR secondary to influenza A infection. #Atrial fibrillation with RVR?chronic persistent on Eliquis #Influenza A infection Patient on rehab received nebulization treatment and started developing tachycardia EKG shows atrial fibrillation with rapid ventricular response rate in the 160s however no ST elevations or depressions noted [id number]; 11.2% stroke risk per year [age, female, CHF, HTN, stroke, DM] HAS-BLED : 4 points; high risk for major bleeding [age, meds, stroke, HTN] In the ED received diltiazem 15 Mg IV x 1 in the ED Rate currently in the 130s Echo Normal LV size and function. Mild LVH. Estimated EF 55%. RV size is moderately increased with normal systolic function. Estimated RVSP 34 mmHg. LA cavity size is moderately enlarged. RA cavity size severly enlarged. Moderate Mitral regurgitation. Mild AI and TR. -on metoprolol succinate 100 mg daily -On Eliquis 5 mg twice daily -Cardiology Dr. Valencia consulted, appreciate recommendations -On Tamiflu #Acute kidney injury Likely prerenal secondary to dehydration and decreased p.o. intake Baseline creatinine 0.6-0.7 Current creatinine 1.4 -Encourage p.o. intake -Avoid nephrotoxins -Renally dose medications -Monitor CMP #COPD not on home O2 Patient on DuoNebs as needed at home. On examination bilateral rhonchi appreciated -On levalbuterol and ipratropium scheduled and as needed -Chest physiotherapy ordered -Wean off oxygen as tolerated #Essential hypertension On admission BP 122/80. Home medication furosemide 20 Mg p.o. twice daily ? Resumed home medication furosemide 20 Mg p.o. daily-on hold due to SALLY #Kum-tqfugdk-vlfkchhfi type II #Hyperlipidemia Home medication metformin 500 Mg p.o. twice daily, rosuvastatin 40 Mg p.o. at bedtime A1c 5.0, lipid panel within normal limits -SSI -Hypoglycemia protocol in place #Hypothyroidism Home medication levothyroxine 75 mcg p.o. daily TSH and free T4 within normal limits ? Resumed home medication levothyroxine 75 mcg p.o. daily #Schizoaffective disorder At baseline patient waxes and wanes some days she sleeps all day. Other days she is more alert but only oriented to person Patient's home medication Depakote 250 Mg p.o. 3 times daily ? Resumed home medication Depakote 250 Mg p.o. 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 daily as prophylaxis dose. CT brain completed on 11/12/2021 findings include: Old infarct right caudate nucleus, left basal ganglia and right frontal lobe. ? Started on ASA 81 Mg p.o. daily #Normocytic anemia #Thrombocytopenia On admission Hb 11.5, PLT 92 Most likely multifactorial, including medication side effect [Depakote], chronic high-dose aspirin use, poor oral intake and possible nutritional deficiencies. ? Monitor on CBC. Case discussed with my senior Dr. Hilliard PGY-[address] Emilee Richmond MD PGY-1 Disposition: Telemetry Fluids: None Feeding: Carb consistent Thrombo prophylaxis: Eliquis and aspirin Gastric Ulcer prophylaxis: None CODE STATUS: Full code Attending Provider Attestation/Addendum Darline Buckley DO, attest that I was physically present for the bender portions of the service and evaluated the patient with the resident and I reviewed and discussed the case with the resident and agree with the resident's findings and plans of care as documented above Patient seen and evaluated this AM. Patient states that she does not want to be bothered and does not want to eat. She remains on 3L/NC. She continues to have scattered wheezing. Will restart solumedrol. SALLY noted due to poor PO intake. However, per nursing, patient has better appetite today. Will encourage PO intake. Titrate O2 as tolerated.
[2024-06-16] MEDS: ATORVASTATIN CALCIUM 20 MG TABLET 40 MG PO (20:15)
[2024-06-16] MEDS: AZITHROMYCIN INJ 500 MG in SODIUM CHLORIDE 0.9% 250 ML 250 ML 250 MG IV (20:16)
[2024-06-17] VITALS (14 sets, daily range): BP systolic 81–146; BP diastolic 55–81; PULSE 79–125; RESP 17–28; TEMP 35.8–36.6; O2SAT 90–100
[2024-06-17] MEDS: IPRATROPIUM RT 0.5 MG/ 2.5 ML NEBU INH ×6 (02:00→21:35)
[2024-06-17] MEDS: LEVALBUTEROL RT 1.25 MG/0.5 ML NEBU INH ×6 (02:00→21:35)
[2024-06-17] MEDS: DIVALPROEX SOD EC 125 MG TABEC 250 MG PO ×3 (05:12→21:55)
[2024-06-17] MEDS: LEVOTHYROXINE SODIUM 25 MCG TABLET 75 MCG PO (05:12)
[2024-06-17] MEDS: INSULIN LISPRO (AdmeLOG) 1 UNIT/0.01 ML UNIT SC ×4 (08:11→21:02)
[2024-06-17] MEDS: APIXABAN 2.5 MG TABLET 5 MG PO ×2 (08:12→20:37)
[2024-06-17] MEDS: OSELTAMIVIR 75 MG CAPSULE PO ×2 (08:12→20:37)
[2024-06-17] MEDS: ASPIRIN EC 81 MG TABEC PO (08:12)
[2024-06-17] MEDS: SENNA TABLET 1 TAB PO (08:12)
[2024-06-17] MEDS: cefTRIAXone/D5w 1gm IV premix 50 ML IV (08:12)
--- NOTE | 2024-06-17 12:00 | ESPR_ITS ---
Documentation for date of: 06/17/24 Subjective Subjective Interval history: Patient was seen at bedside today. Solu-Medrol increased to twice daily and Tessalon Perles along with Mucinex were added to patient's regimen. Oxygen requirement still remains elevated but at bedside we found that the patient's mask was disconnected. Will attempt to titrate down appropriately. Continue with antibiotics and antivirals. Exam Vital Signs Temp Pulse Resp BP Pulse Ox O2 Del Method O2 Flow Rate 97.2 F 89 19 108/68 100 Oxy Mask 8 06/18/24 04:00 06/18/24 07:31 06/18/24 06:26 06/18/24 04:00 06/18/24 06:26 06/18/24 04:00 06/18/24 06:26 Narrative Exam Physical Exam GENERAL: NAD, asleep, noncommunicative, obese HEENT: Moist mucosa. Eyes open, symmetrical, & clear CARDIO: Heart irregularly irregular, no obvious murmurs PULM: Mild coughing/dyspnea bilateral rhonchi especially at Apices GI: Abdomen soft, nondistended, no pain on palpation. BSx4 SKIN/MSK/EXT: Bilateral lower extremities contractures at the ankles, no pain on palpation. Pedal pulses present B/L NEURO: AAOx3, no focal neuro deficits Objective Labs 06/19/24 05:15 06/19/24 05:15 Labs: Laboratory Results - last 24 hr 06/18/24 05:50 WBC 10.8 RBC 2.85 L Hgb 9.8 L Hct 29.6 L MCV 104 H MCH 34.4 MCHC 33.1 RDW Std Deviation 50.6 H Plt Count 118 L D Neut % (Auto) 88 H Lymph % (Auto) 7 L [place] % (Auto) 3 Eos % (Auto) 0 Baso % (Auto) 0 Neut # (Auto) 9.5 H Lymph # (Auto) 0.7 L [place] # (Auto) 0.3 Eos # (Auto) 0.0 Baso # (Auto) 0.0 Immature Gran # (Auto) 0.28 H Absolute Nucleated RBC 0.02 H Immature Gran % 3 H Nucleated RBC % 0 Sodium 133 L Potassium 4.8 Chloride 96 L Carbon Dioxide 26.8 Anion Gap 10 BUN 72 H Creatinine 1.4 H Estim Creat Clear Calc 37.6 L eGFR 40 L BUN/Creatinine Ratio 51 H Glucose 186 H D Calculated Osmolality 292 Calcium 8.4 Corrected Calcium 8.9 Total Bilirubin 0.6 AST 51 H ALT 76 H Alkaline Phosphatase 84 Total Protein 6.3 Albumin 3.4 Globulin 2.9 Albumin/Globulin Ratio 1.2 ABG Interpretation ABG results: 06/15/24 12:07 ABG pH 7.35 ABG pCO2 47 ABG pO2 71 L ABG HCO3 26 ABG O2 Saturation 95 ABG Base Excess 0 Quality Measures Quality Measures none Advance care planning discussed with:: patient Assessment & Plan Assessment Current Active Medications: Generic Name Dose Route Start Last Admin Trade Name Freq PRN Reason Stop Dose Admin Acetaminophen 1,000 mg 06/15/24 09:07 Acetaminophen 500 Mg Tablet PO 07/13/24 22:12 Q6H PRN Fever >100.3 or pain Apixaban 5 mg 06/14/24 21:00 06/17/24 20:37 Apixaban 2.5 Mg Tablet PO 07/14/24 20:59 5 mg BID ENZO Administration Aspirin 81 mg 06/14/24 09:00 06/17/24 08:12 Aspirin Ec 81 Mg Tabec PO 07/14/24 08:59 81 mg QDAY ENZO Administration Atorvastatin Calcium 40 mg 06/14/24 21:00 06/17/24 20:37 Atorvastatin Calcium 20 Mg Tablet PO 07/14/24 20:59 40 mg HS ENZO Administration Benzonatate 100 mg 06/17/24 13:07 Benzonatate 100 Mg Capsule PO 07/17/24 13:06 Q8HR PRN COUGH Protocol Dextrose 50 ml 06/14/24 02:07 Dextrose 50%-Water Inj 50 Ml Syringe IV 07/14/24 02:06 Q15MIN PRN BG <50 OR BG <70 & pt unresponsive Divalproex Sodium 250 mg 06/14/24 14:00 06/18/24 05:16 Divalproex Sod Ec 125 Mg Tabec PO 07/14/24 13:59 250 mg TID ENZO Administration Furosemide 20 mg 06/16/24 09:00 Furosemide Inj 10 Mg/Ml Vial 2 Ml IVP 07/16/24 08:59 QDAY ENZO Glucagon 1 mg 06/14/24 02:07 Glucagon Inj 1 Mg Vial IM Q15MIN PRN BG <70, and no IV access Guaifenesin/Dextromethorphan 1 each 06/17/24 13:07 Guaifenesin/Dm Tablet PO 07/17/24 13:06 BID PRN COUGH Ceftriaxone Sodium/Dextrose 50 mls @ 100 mls/hr 06/13/24 22:16 06/17/24 08:12 Rocephin/D5w 1gm Iv Premix IV 06/20/24 22:15 100 mls/hr QDAY ENZO Administration Azithromycin 500 mg/ Sodium 250 mls @ 250 mls/hr 06/14/24 21:00 06/17/24 20:38 Chloride IV 06/21/24 20:59 250 mls/hr QDAY@2100 ENZO Administration Sodium Chloride 1,000 mls @ 75 mls/hr 06/18/24 07:16 Ns IV 06/20/24 12:35 .[id number] ENZO Insulin Human Lispro 0 unit 06/14/24 10:45 06/17/24 21:02 Insulin Lispro (Admelog) 1 Unit/0.01 Ml Unit SC 07/14/24 10:44 1 unit TIDACHS ENZO Administration Protocol Ipratropium [place] 0.5 mg 06/14/24 13:00 06/18/24 06:26 Ipratropium Rt 0.5 Mg/ 2.5 Ml Nebu INH 07/14/24 12:59 0.5 mg Q6HRRT ENZO Administration Ipratropium [place] 0.5 mg 06/14/24 14:42 06/17/24 21:35 Ipratropium Rt 0.5 Mg/ 2.5 Ml Nebu INH 07/14/24 14:59 0.5 mg Q4HRRT PRN Administration SHORTNESS OF BREATH Protocol Levalbuterol HCl 1.25 mg 06/14/24 19:00 06/18/24 06:26 Levalbuterol Rt 1.25 Mg/0.5 Ml Nebu INH 07/14/24 18:59 1.25 mg Q6HRRT ENZO Administration Levalbuterol HCl 1.25 mg 06/14/24 14:43 06/17/24 21:35 Levalbuterol Rt 1.25 Mg/0.5 Ml Nebu INH 07/14/24 14:59 1.25 mg Q4HRRT PRN Administration WHEEZING Protocol Levothyroxine Sodium 75 mcg 06/14/24 06:00 06/18/24 05:16 Levothyroxine Sodium 25 Mcg Tablet PO 07/14/24 05:59 75 mcg ACBR ENZO Administration Magnesium Hydroxide 30 ml 06/14/24 01:50 Milk Of Magnesia Susp 30 Ml Udc PO 07/14/24 01:49 QDAY PRN Constipation > 3 days Protocol Methylprednisolone Sodium Succinate 40 mg 06/17/24 21:00 06/17/24 20:37 Methylprednisolone Sod Succ 40 Mg Vial IVP 06/24/24 20:59 40 mg BID ENZO Administration Metoprolol Succinate 100 mg 06/15/24 09:00 06/17/24 12:51 Metoprolol Succinate Xl 25 Mg Tabcr PO 07/15/24 08:59 Not Given QDAY ENZO Oseltamivir Phosphate 75 mg 06/13/24 22:15 06/17/24 20:37 Oseltamivir 75 Mg Capsule PO 06/20/24 22:14 75 mg BID ENZO Administration Sennosides 1 tab 06/14/24 09:00 06/17/24 08:12 Senna Tablet PO 07/14/24 08:59 1 tab QDAY ENZO Administration Protocol Sodium Chloride 1 spray 06/14/24 02:56 Saline Nasal 45 Ml Btl NASAL 07/14/24 02:55 PRN PRN CONGESTION Sodium Chloride 3 ml 06/14/24 10:34 Sodium Chloride Rt [place] 0.9% 3 Ml Nebu INH 07/14/24 10:33 PRN PRN SOLN Plan 73-year-old female with a past medical history significant for COPD not on home O2, essential hypertension, atrial fibrillation on Eliquis, schizoaffective disorder, hypothyroidism and 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 Patient will be admitted for treatment and management of A-fib with RVR secondary to influenza A infection. #Atrial fibrillation with RVR?chronic persistent on Eliquis #Influenza A infection Patient on rehab received nebulization treatment and started developing tachycardia EKG shows atrial fibrillation with rapid ventricular response rate in the 160s however no ST elevations or depressions noted [id number]; 11.2% stroke risk per year [age, female, CHF, HTN, stroke, DM] HAS-BLED : 4 points; high risk for major bleeding [age, meds, stroke, HTN] In the ED received diltiazem 15 Mg IV x 1 in the ED Rate currently in the 130s Echo Normal LV size and function. Mild LVH. Estimated EF 55%. RV size is moderately increased with normal systolic function. Estimated RVSP 34 mmHg. LA cavity size is moderately enlarged. RA cavity size severly enlarged. Moderate Mitral regurgitation. Mild AI and TR. -on metoprolol succinate 100 mg daily -On Eliquis 5 mg twice daily -Cardiology Dr. Valencia consulted, recommends to continue with metoprolol succinate and Eliquis -On Tamiflu #Acute kidney injury Likely prerenal secondary to dehydration and decreased p.o. intake Baseline creatinine 0.6-0.7 Current creatinine 1.4 -Encourage p.o. intake -Avoid nephrotoxins -Renally dose medications -Monitor CMP #COPD exacerbation #COPD not on home O2 Patient on DuoNebs as needed at home. On examination bilateral rhonchi appreciated -On levalbuterol and ipratropium scheduled and as needed -Chest physiotherapy ordered -Wean off oxygen as tolerated ?Solu-Medrol 40 mg twice daily #Essential hypertension On admission BP 122/80. Home medication furosemide 20 Mg p.o. twice daily ? Resumed home medication furosemide 20 Mg p.o. daily-on hold due to SALLY #Gne-djeadoe-lljqgzowb type II #Hyperlipidemia Home medication metformin 500 Mg p.o. twice daily, rosuvastatin 40 Mg p.o. at bedtime A1c 5.0, lipid panel within normal limits -SSI -Hypoglycemia protocol in place #Hypothyroidism Home medication levothyroxine 75 mcg p.o. daily TSH and free T4 within normal limits ? Resumed home medication levothyroxine 75 mcg p.o. daily #Schizoaffective disorder At baseline patient waxes and wanes some days she sleeps all day. Other days she is more alert but only oriented to person Patient's home medication Depakote 250 Mg p.o. 3 times daily ? Resumed home medication Depakote 250 Mg p.o. 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 daily as prophylaxis dose. CT brain completed on 11/12/2021 findings include: Old infarct right caudate nucleus, left basal ganglia and right frontal lobe. ? Started on ASA 81 Mg p.o. daily #Normocytic anemia #Thrombocytopenia On admission Hb 11.5, PLT 92 Most likely multifactorial, including medication side effect [Depakote], chronic high-dose aspirin use, poor oral intake and possible nutritional deficiencies. ? Monitor on CBC. Plan of care discussed with supervising attending Dr. Emilee Burgos M.D. PGY-3 Disposition: Telemetry Fluids: None Feeding: Carb consistent Thrombo prophylaxis: Eliquis and aspirin Gastric Ulcer prophylaxis: None CODE STATUS: Full code Attending Provider Attestation/Addendum Darline Buckley DO, attest that I was physically present for the bender portions of the service and evaluated the patient with the resident and I reviewed and discussed the case with the resident and agree with the resident's findings and plans of care as documented above Patient seen and evaluated this a.m. Patient is somnolent. Per nursing, patient occasionally has desaturations which resolved with increased O2. Patient was increased to 8 L and now saturating in the 90s. Suspect that patient may be having apneic events due to frequent readjustment of O2 settings. Will this patient with CPAP while she is sleeping. Continue to monitor closely. Patient appears to be doing well on 3 L otherwise when she is awake. She has no other needs at this time.
[2024-06-17] MEDS: ATORVASTATIN CALCIUM 20 MG TABLET 40 MG PO (20:37)
[2024-06-17] MEDS: AZITHROMYCIN INJ 500 MG in SODIUM CHLORIDE 0.9% 250 ML 250 ML 250 MG IV (20:38)
[2024-06-18] VITALS (14 sets, daily range): BP systolic 101–123; BP diastolic 68–95; PULSE 85–109; RESP 17–30; TEMP 35.9–36.3; O2SAT 92–100
[2024-06-18] MEDS: IPRATROPIUM RT 0.5 MG/ 2.5 ML NEBU INH ×4 (00:03→19:27)
[2024-06-18] MEDS: LEVALBUTEROL RT 1.25 MG/0.5 ML NEBU INH ×4 (00:03→19:27)
--- NOTE | 2024-06-18 01:49 | ESPR_ITS ---
RE: LAYTON ROA : 1950 DATE OF SERVICE: 06/17/2024 SUBJECTIVE: The patient was seen by Cardiology _. She is doing better today. She has atrial fibrillation, rate controlled well. The patient is intermediate resident with multiple medical issues, history of previous stroke and hypertension as well as atrial fibrillation, now has atrial fibrillation, rapid heart rate, now controlled well with metoprolol for now. She is tolerating well so far, also receiving apixaban. Her examination, she is not having new symptoms. She does not complain of any chest pain or shortness of breath. Appears to be in stable afib Rate is controlled well. OBJECTIVE: General: Her examination shows vital signs remain fairly stable today. Vital Signs: Her blood pressure is 100/70, pulse rate is 80, respirations 22, temperature is normal, pulse oximetry 94% Heart: Sounds are irregular, atrial fibrillation. Abdomen: Thin. Extremities: No edema. Neurologic: Unchanged. ASSESSMENT: 1. Atrial fibrillation, rate controlled well. 2. Diabetes mellitus. 3. Chronic obstructive pulmonary disease. 4. Hypothyroidism. 6. History of previous stroke with pathologic left _ fracture and contracture of bilateral ankles. RECOMMENDATIONS: Continue medical management including rate control with metoprolol. Monitor closely for any signs of tachycardia, but metoprolol appears to be controlling rate well for now. DT: 23:40:25 TT: 01:40:00 Ref: [id number] - TID: [id number] MTDD
--- NOTE | 2024-06-18 01:57 | ESPR_ITS ---
RE: LAYTON ROA : 1950 DATE OF SERVICE: 06/16/2024 HISTORY OF PRESENT ILLNESS: The patient is a 73-year-old lady, longterm resident with history of atrial fibrillation, previous stroke consistent with chronic Afib, rate now controlled much better, not having chest pain or shortness of breath, difficult to get much history as she is much more alert and awake. She also received antibiotics IV and low-dose Lasix, which has been held metoprolol 100 mg daily for rate control as well as Eliquis for anticoagulation. No shortness of breath or chest pain is reported. OBJECTIVE: Vital Signs: Remained stable. Blood pressure is 116/70. Pulse rate is 100. Respirations 24, temperature is normal. Neck: Supple. No JVD. Lungs: Decreased breath sounds at bases. Heart: S1, [id number]. Atrial fibrillation. Abdomen: Thin and soft. Extremities: No edema. : Not performed. Rectal: Not performed. Neurologic: unchanged_ DIAGNOSTIC DATA: Electrocardiogram showed AFib, rate controlled well. ASSESSMENT: 1. The patient with atrial fibrillation, rate controlled well now. 2. History of previous stroke. 3. Pneumonia. RECOMMENDATIONS: Continue metoprolol for rate control for now. No changes to be made otherwise and also continue Eliquis for anticoagulation. DT: 23:29:01 TT: 01:22:00 Ref: [id number] - TID: [id number] MTDD
[2024-06-18] MEDS: DIVALPROEX SOD EC 125 MG TABEC 250 MG PO ×3 (05:16→20:24)
[2024-06-18] MEDS: LEVOTHYROXINE SODIUM 25 MCG TABLET 75 MCG PO (05:16)
[2024-06-18 06:05] LABS: Basophils % (Auto) 0 % (0-2.5); Eosinophils % (Auto) 0 % (0-10); Monocytes # (Auto) 0.3 Thou/mm3 (0.0-0.8); Monocytes % (Auto) 3 % (0-12); Nucleated Red Blood Cell % 0 /100 WBC (0)
[2024-06-18 06:07] LABS: Hematocrit 29.6 % (36.0-46.0); Hemoglobin 9.8 g/dL (12.0-16.0); Immature Granulocytes % (Auto) 3 % (0-0); Immature Granulocytes Auto 0.28 Thou/mm3 (0.00-0.00); Lymphocytes # (Auto) 0.7 Thou/mm3 (1.0-4.8); Lymphocytes % (Auto) 7 % (10-50); Mean Corpuscular HGB Conc 33.1 g/dl (31.0-37.0); Mean Corpuscular Hemoglobin 34.4 pg (25.0-35.0); Mean Corpuscular Volume 104 fL (80-100); Neutrophils # (Auto) 9.5 Thou/mm3 (1.8-7.7); Neutrophils % (Auto) 88 % (37-80); Nucleated Red Blood Cell # 0.02 Thou/mm3 (0.00-0.00); Platelet Count 118 Thou/mm3 (140-440); RDW Standard Deviation 50.6 fL (36.4-46.3); Red Blood Count 2.85 Miln/mm3 (4.00-5.20); White Blood Count 10.8 Thou/mm3 (3.6-11.0)
[2024-06-18 06:30] LABS: Alanine Aminotransferase 76 U/L (10-49); Albumin, Serum 3.4 gm/dL (3.4-4.8); Albumin/Globulin Ratio 1.2 (1.2-2.2); Alkaline Phosphatase 84 U/L (46-116); Anion Gap 10 (7-16); Aspartate Amino Transferase 51 U/L (0-34); BUN/Creatinine Ratio 51 Ratio (12-20); Bilirubin,Total 0.6 mg/dL (0.3-1.2); Blood Urea Nitrogen 72 mg/dL (9-23); Calcium 8.4 mg/dL (8.3-10.6); Calcium (Corrected) 8.9 mg/dL (8.5-10.1); Carbon Dioxide 26.8 mMol/L (20.0-31.0); Chloride 96 mMol/L (98-107); Creatinine (Component) 1.4 mg/dL (0.6-1.3); Estimated Creatinine Clearance 37.6 mL/min (>60); Globulin 2.9 gm/dL (2.3-3.5); Glucose 186 mg/dL (74-106); Osmolality,Calculated 292 (275-295); Potassium 4.8 mMol/L (3.4-5.1); Sodium 133 mMol/L (136-145); Total Protein 6.3 gm/dL (5.7-8.2); eGFR 40 See Note
--- NOTE | 2024-06-18 07:48 | XR_ITS ---
Examination: AP chest single view TECHNIQUE: AP portable sitting chest single view June 18, 2024 [id number] hours INDICATIONS: Shortness of breath today. FINDINGS: Significant pneumonia left base retrocardiac obscuring detail cardiac contour Mild heart failure with cardiomegaly and prominent vascular congestion Prominent osteopenia IMPRESSION: Significant pneumonia left base Mild heart failure
[2024-06-18] MEDS: INSULIN LISPRO (AdmeLOG) 1 UNIT/0.01 ML UNIT SC ×3 (07:55→17:02)
[2024-06-18] MEDS: SODIUM CHLORIDE 0.9% 1000 ML 1,000 ML 75 ML IV (07:55)
[2024-06-18] MEDS: cefTRIAXone/D5w 1gm IV premix 50 ML IV (09:11)
[2024-06-18] MEDS: BENZONATATE 100 MG CAPSULE PO ×3 (09:11→20:23)
[2024-06-18] MEDS: APIXABAN 2.5 MG TABLET 5 MG PO ×2 (09:12→20:23)
[2024-06-18] MEDS: METOPROLOL SUCCINATE XL 25 MG TABCR 100 MG PO (09:12)
[2024-06-18] MEDS: OSELTAMIVIR 75 MG CAPSULE PO ×2 (09:12→20:24)
[2024-06-18] MEDS: SENNA TABLET 1 TAB PO (09:12)
[2024-06-18] MEDS: ASPIRIN EC 81 MG TABEC PO (09:13)
--- NOTE | 2024-06-18 09:26 | PC.SS ---
Update: Patient possible d/c to SNF today. Patient from [facility].
[2024-06-18] MEDS: SODIUM CHLORIDE 0.9% 1000 ML 1,000 ML 100 ML IV ×2 (09:46→20:20)
--- NOTE | 2024-06-18 10:11 | ESPR_ITS ---
Documentation for date of: 06/18/24 Senior resident attestation: The patient is a 73-year-old female with a past medical history of COPD, hypertension and A-fib on Eliquis, she is affective disorder left foot fracture and contractures of bilateral lower extremities was admitted to the hospital for A-fib with RVR, likely secondary to influenza infection. Was initially started on diltiazem drip, and transition to p.o. metoprolol, currently rate controlled. #Acute hypoxic respiratory failure?due to underlying COPD, patient continues to demonstrate hypoxia with pulse oximetry, and has increasing oxygen requirements, the patient mostly sleeps all day and mask is found to be of the face, at times despite having oxygen mask displaced, patient is noted to be saturating in the 90s on room air, due to concern for KOFI will start patient on CPAP. #A-fib RVR?currently on metoprolol succinate 100 mg daily, recommended metoprolol 100 mg daily. Continue home Eliquis 5 mg twice daily for anticoagulation. #COPD exacerbation?lev albuterol and ipratropium, IV methylprednisone. #Influenza A pneumonia?continue Tamiflu for 5 days added ceftriaxone for empiric coverage of superimposed bacterial pneumonia #Diabetes mellitus?sliding scale insulin #Schizoaffective disorder?resume home medication Depakote #CVA?old?continue aspirin 81 daily Patient evaluated and examined at the bedside, plan of care discussed with rest of the team including my attending physician, except as noted. Quresh PGY2 Subjective Subjective Interval history: Patient seen today at the bedside found somnolent not wanting to communicate. No overnight events reported. On examination was found with bilateral wheezing as well as congestion. Patient has history of COPD oxygen goals adjusted to 88- 93%. Chest physiotherapy ordered Mucinex was scheduled. Patient has SALLY was started on NS fluids 100 cc/h. Exam Vital Signs Temp Pulse Resp BP Pulse Ox O2 Del Method O2 Flow Rate 96.6 F L 109 H 18 107/69 92 L Oxy Mask 5 06/18/24 08:00 06/18/24 09:12 06/18/24 09:00 06/18/24 09:12 06/18/24 09:00 06/18/24 08:00 06/18/24 09:00 Narrative Exam Physical Exam GENERAL: NAD, noncommunicative, obese HEENT: Moist mucosa. Eyes open, symmetrical, & clear CARDIO: Heart irregularly irregular, no obvious murmurs, no pain on palpation PULM: Mild coughing/dyspnea, bilateral wheezing GI: Abdomen soft, nondistended, no pain on palpation. BSx4 SKIN/MSK/EXT: Bilateral lower extremities contractures at the ankles, no pain on palpation. Pedal pulses present B/L NEURO: AAOx3, no focal neuro deficits Objective Labs 06/19/24 05:15 06/19/24 05:15 Labs: Laboratory Results - last 24 hr 06/18/24 05:50 WBC 10.8 RBC 2.85 L Hgb 9.8 L Hct 29.6 L MCV 104 H MCH 34.4 MCHC 33.1 RDW Std Deviation 50.6 H Plt Count 118 L D Neut % (Auto) 88 H Lymph % (Auto) 7 L [place] % (Auto) 3 Eos % (Auto) 0 Baso % (Auto) 0 Neut # (Auto) 9.5 H Lymph # (Auto) 0.7 L [place] # (Auto) 0.3 Eos # (Auto) 0.0 Baso # (Auto) 0.0 Immature Gran # (Auto) 0.28 H Absolute Nucleated RBC 0.02 H Immature Gran % 3 H Nucleated RBC % 0 Sodium 133 L Potassium 4.8 Chloride 96 L Carbon Dioxide 26.8 Anion Gap 10 BUN 72 H Creatinine 1.4 H Estim Creat Clear Calc 37.6 L eGFR 40 L BUN/Creatinine Ratio 51 H Glucose 186 H D Calculated Osmolality 292 Calcium 8.4 Corrected Calcium 8.9 Total Bilirubin 0.6 AST 51 H ALT 76 H Alkaline Phosphatase 84 Total Protein 6.3 Albumin 3.4 Globulin 2.9 Albumin/Globulin Ratio 1.2 ABG Interpretation ABG results: 06/15/24 12:07 ABG pH 7.35 ABG pCO2 47 ABG pO2 71 L ABG HCO3 26 ABG O2 Saturation 95 ABG Base Excess 0 Quality Measures Quality Measures none Advance care planning discussed with:: patient Assessment & Plan Assessment Current Active Medications: Generic Name Dose Route Start Last Admin Trade Name Freq PRN Reason Stop Dose Admin Acetaminophen 1,000 mg 06/15/24 09:07 Acetaminophen 500 Mg Tablet PO 07/13/24 22:12 Q6H PRN Fever >100.3 or pain Apixaban 5 mg 06/14/24 21:00 06/18/24 09:12 Apixaban 2.5 Mg Tablet PO 07/14/24 20:59 5 mg BID ENZO Administration Aspirin 81 mg 06/14/24 09:00 06/18/24 09:13 Aspirin Ec 81 Mg Tabec PO 07/14/24 08:59 81 mg QDAY ENZO Administration Atorvastatin Calcium 40 mg 06/14/24 21:00 06/17/24 20:37 Atorvastatin Calcium 20 Mg Tablet PO 07/14/24 20:59 40 mg HS ENZO Administration Benzonatate 100 mg 06/17/24 13:07 06/18/24 09:11 Benzonatate 100 Mg Capsule PO 07/17/24 13:06 100 mg Q8HR PRN Administration COUGH Protocol Dextrose 50 ml 06/14/24 02:07 Dextrose 50%-Water Inj 50 Ml Syringe IV 07/14/24 02:06 Q15MIN PRN BG <50 OR BG <70 & pt unresponsive Divalproex Sodium 250 mg 06/14/24 14:00 06/18/24 05:16 Divalproex Sod Ec 125 Mg Tabec PO 07/14/24 13:59 250 mg TID ENZO Administration Furosemide 20 mg 06/16/24 09:00 Furosemide Inj 10 Mg/Ml Vial 2 Ml IVP 07/16/24 08:59 QDAY EZNO Glucagon 1 mg 06/14/24 02:07 Glucagon Inj 1 Mg Vial IM Q15MIN PRN BG <70, and no IV access Guaifenesin/Dextromethorphan 1 each 06/17/24 13:07 Guaifenesin/Dm Tablet PO 07/17/24 13:06 BID PRN COUGH Ceftriaxone Sodium/Dextrose 50 mls @ 100 mls/hr 06/13/24 22:16 06/18/24 09:11 Rocephin/D5w 1gm Iv Premix IV 06/20/24 22:15 100 mls/hr QDAY ENZO Administration Azithromycin 500 mg/ Sodium 250 mls @ 250 mls/hr 06/14/24 21:00 06/17/24 20:38 Chloride IV 06/21/24 20:59 250 mls/hr QDAY@2100 ENZO Administration Sodium Chloride 1,000 mls @ 100 mls/hr 06/18/24 09:41 06/18/24 09:46 Ns IV 06/20/24 01:40 100 mls/hr .Q10H ENZO Administration Insulin Human Lispro 0 unit 06/14/24 10:45 06/18/24 07:55 Insulin Lispro (Admelog) 1 Unit/0.01 Ml Unit SC 07/14/24 10:44 1 unit TIDACHS ENZO Administration Protocol Ipratropium [place] 0.5 mg 06/14/24 13:00 06/18/24 06:26 Ipratropium Rt 0.5 Mg/ 2.5 Ml Nebu INH 07/14/24 12:59 0.5 mg Q6HRRT ENZO Administration Ipratropium [place] 0.5 mg 06/14/24 14:42 06/17/24 21:35 Ipratropium Rt 0.5 Mg/ 2.5 Ml Nebu INH 07/14/24 14:59 0.5 mg Q4HRRT PRN Administration SHORTNESS OF BREATH Protocol Levalbuterol HCl 1.25 mg 06/14/24 19:00 06/18/24 06:26 Levalbuterol Rt 1.25 Mg/0.5 Ml Nebu INH 07/14/24 18:59 1.25 mg Q6HRRT ENZO Administration Levalbuterol HCl 1.25 mg 06/14/24 14:43 06/17/24 21:35 Levalbuterol Rt 1.25 Mg/0.5 Ml Nebu INH 07/14/24 14:59 1.25 mg Q4HRRT PRN Administration WHEEZING Protocol Levothyroxine Sodium 75 mcg 06/14/24 06:00 06/18/24 05:16 Levothyroxine Sodium 25 Mcg Tablet PO 07/14/24 05:59 75 mcg ACBR ENZO Administration Magnesium Hydroxide 30 ml 06/14/24 01:50 Milk Of Magnesia Susp 30 Ml Udc PO 07/14/24 01:49 QDAY PRN Constipation > 3 days Protocol Methylprednisolone Sodium Succinate 40 mg 06/17/24 21:00 06/18/24 09:11 Methylprednisolone Sod Succ 40 Mg Vial IVP 06/24/24 20:59 40 mg BID ENZO Administration Metoprolol Succinate 100 mg 06/15/24 09:00 06/18/24 09:12 Metoprolol Succinate Xl 25 Mg Tabcr PO 07/15/24 08:59 100 mg QDAY ENZO Administration Oseltamivir Phosphate 75 mg 06/13/24 22:15 06/18/24 09:12 Oseltamivir 75 Mg Capsule PO 06/20/24 22:14 75 mg BID ENZO Administration Sennosides 1 tab 06/14/24 09:00 06/18/24 09:12 Senna Tablet PO 07/14/24 08:59 1 tab QDAY ENZO Administration Protocol Sodium Chloride 1 spray 06/14/24 02:56 Saline Nasal 45 Ml Btl NASAL 07/14/24 02:55 PRN PRN CONGESTION Sodium Chloride 3 ml 06/14/24 10:34 Sodium Chloride Rt [place] 0.9% 3 Ml Nebu INH 07/14/24 10:33 PRN PRN SOLN Plan 73-year-old female with a past medical history significant for COPD not on home O2, essential hypertension, atrial fibrillation on Eliquis, schizoaffective disorder, hypothyroidism and 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 Patient will be admitted for treatment and management of A-fib with RVR secondary to influenza A infection. #Atrial fibrillation with RVR?chronic persistent on Eliquis #Influenza A infection Patient on rehab received nebulization treatment and started developing tachycardia EKG shows atrial fibrillation with rapid ventricular response rate in the 160s however no ST elevations or depressions noted [id number]; 11.2% stroke risk per year [age, female, CHF, HTN, stroke, DM] HAS-BLED : 4 points; high risk for major bleeding [age, meds, stroke, HTN] In the ED received diltiazem 15 Mg IV x 1 in the ED Rate currently in the 130s Echo Normal LV size and function. Mild LVH. Estimated EF 55%. RV size is moderately increased with normal systolic function. Estimated RVSP 34 mmHg. LA cavity size is moderately enlarged. RA cavity size severly enlarged. Moderate Mitral regurgitation. Mild AI and TR. -on metoprolol succinate 100 mg daily -On Eliquis 5 mg twice daily -Cardiology Dr. Valencia consulted, recommends to continue with metoprolol succinate and Eliquis -On Tamiflu #Acute kidney injury Likely prerenal secondary to dehydration and decreased p.o. intake Baseline creatinine 0.6-0.7 Current creatinine 1.4 -On IVF's at 100 cc/h -Avoid nephrotoxins -Renally dose medications -Monitor CMP #COPD exacerbation #COPD not on home O2 Patient on DuoNebs as needed at home. On examination bilateral rhonchi appreciated -On levalbuterol and ipratropium scheduled and as needed -Chest physiotherapy ordered -On mucolytic's -Wean off oxygen as tolerated ?Solu-Medrol 40 mg twice daily #Essential hypertension On admission BP 122/80. Home medication furosemide 20 Mg p.o. twice daily ? Resumed home medication furosemide 20 Mg p.o. daily-on hold due to SALLY #Kci-[id number]-cmocwrxvp type II #Hyperlipidemia Home medication metformin 500 Mg p.o. twice daily, rosuvastatin 40 Mg p.o. at bedtime A1c 5.0, lipid panel within normal limits -SSI -Hypoglycemia protocol in place #Hypothyroidism Home medication levothyroxine 75 mcg p.o. daily TSH and free T4 within normal limits ? Resumed home medication levothyroxine 75 mcg p.o. daily #Schizoaffective disorder At baseline patient waxes and wanes some days she sleeps all day. Other days she is more alert but only oriented to person Patient's home medication Depakote 250 Mg p.o. 3 times daily ? Resumed home medication Depakote 250 Mg p.o. 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 daily as prophylaxis dose. CT brain completed on 11/12/2021 findings include: Old infarct right caudate nucleus, left basal ganglia and right frontal lobe. ? on ASA 81 Mg p.o. daily #Normocytic anemia #Thrombocytopenia On admission Hb 11.5, PLT 92 Most likely multifactorial, including medication side effect [Depakote], chronic high-dose aspirin use, poor oral intake and possible nutritional deficiencies. ? Monitor on CBC. Plan of care discussed with my senior Dr. Hilliard PGY-[address] Emilee Richmond MD PGY-1 Disposition: Telemetry Fluids: None Feeding: Carb consistent Thrombo prophylaxis: Eliquis and aspirin Gastric Ulcer prophylaxis: None CODE STATUS: Full code Attending Provider Attestation/Addendum Darline Buckley, DO, attest that I was physically present for the bender portions of the service and evaluated the patient with the resident and I reviewed and discussed the case with the resident and agree with the resident's findings and plans of care as documented above Patient seen and evaluated this a.m. Patient is somnolent. Per nursing, patient occasionally has desaturations which resolved with increased O2. Patient was increased to 8 L and now saturating in the 90s. Suspect that patient may be having apneic events due to frequent readjustment of O2 settings. Will this patient with CPAP while she is sleeping. Continue to monitor closely. Patient appears to be doing well on 3 L otherwise when she is awake. She has no other needs at this time.
[2024-06-18] MEDS: guaiFENesin/DM TABLET 1 EACH PO ×2 (11:52→20:23)
--- NOTE | 2024-06-18 14:10 | ESPR_ITS ---
<Statement entered by Estephanie Valencia MD - 06/21/24 13:03> I personally reviewed the patient with resident physician Dr. Castellanos appears to be doing stable she is remains in atrial fibrillation stable condition not have any rapid rates anymore continue present medication with no changes including anticoagulation and to monitor the patient on telemetry. Agree with the treatment plan recommendation as recommended by Dr. Castellanos. Documentation for date of: 06/18/24 Subjective Subjective Interval history: Patient seen and assessed at bedside. Patient continues to be in A-fib but rate controlled in the low 90s to 110s. Patient slightly confused but states she is not having any chest pain. Patient currently on oxy mask saturating well 99%. Exam Vital Signs Temp Pulse Resp BP Pulse Ox O2 Del Method O2 Flow Rate 96.6 F L 97 20 107/69 100 Oxy Mask 8 06/18/24 08:00 06/18/24 12:23 06/18/24 12:23 06/18/24 09:12 06/18/24 12:23 06/18/24 08:00 06/18/24 12:23 Narrative Exam GENERAL: NAD, laying in bed, obese, AO x 1. CARDIO: Irregularly irregular, no obvious murmurs, no pain on palpation PULM: Rhonchi on auscultation with mild wheezing both lobes. GI: Abdomen soft, nondistended, no pain on palpation. BSx4 EXT: Bilateral lower extremities contractures at the ankles, no pain on palpation. Objective Labs 06/18/24 05:50 06/18/24 05:50 Labs: Laboratory Results - last 24 hr 06/18/24 05:50 WBC 10.8 RBC 2.85 L Hgb 9.8 L Hct 29.6 L MCV 104 H MCH 34.4 MCHC 33.1 RDW Std Deviation 50.6 H Plt Count 118 L D Neut % (Auto) 88 H Lymph % (Auto) 7 L [place] % (Auto) 3 Eos % (Auto) 0 Baso % (Auto) 0 Neut # (Auto) 9.5 H Lymph # (Auto) 0.7 L [place] # (Auto) 0.3 Eos # (Auto) 0.0 Baso # (Auto) 0.0 Immature Gran # (Auto) 0.28 H Absolute Nucleated RBC 0.02 H Immature Gran % 3 H Nucleated RBC % 0 Sodium 133 L Potassium 4.8 Chloride 96 L Carbon Dioxide 26.8 Anion Gap 10 BUN 72 H Creatinine 1.4 H Estim Creat Clear Calc 37.6 L eGFR 40 L BUN/Creatinine Ratio 51 H Glucose 186 H D Calculated Osmolality 292 Calcium 8.4 Corrected Calcium 8.9 Total Bilirubin 0.6 AST 51 H ALT 76 H Alkaline Phosphatase 84 Total Protein 6.3 Albumin 3.4 Globulin 2.9 Albumin/Globulin Ratio 1.2 ABG Interpretation ABG results: 06/15/24 12:07 ABG pH 7.35 ABG pCO2 47 ABG pO2 71 L ABG HCO3 26 ABG O2 Saturation 95 ABG Base Excess 0 Quality Measures Quality Measures none Advance care planning discussed with:: patient Assessment & Plan Assessment Current Active Medications: Generic Name Dose Route Start Last Admin Trade Name Freq PRN Reason Stop Dose Admin Acetaminophen 1,000 mg 06/15/24 09:07 Acetaminophen 500 Mg Tablet PO 07/13/24 22:12 Q6H PRN Fever >100.3 or pain Apixaban 5 mg 06/14/24 21:00 06/18/24 09:12 Apixaban 2.5 Mg Tablet PO 07/14/24 20:59 5 mg BID ENZO Administration Aspirin 81 mg 06/14/24 09:00 06/18/24 09:13 Aspirin Ec 81 Mg Tabec PO 07/14/24 08:59 81 mg QDAY ENZO Administration Atorvastatin Calcium 40 mg 06/14/24 21:00 06/17/24 20:37 Atorvastatin Calcium 20 Mg Tablet PO 07/14/24 20:59 40 mg HS ENZO Administration Benzonatate 100 mg 06/18/24 11:30 06/18/24 11:48 Benzonatate 100 Mg Capsule PO 07/18/24 11:29 Not Given Q8HR ENZO Protocol Dextrose 50 ml 06/14/24 02:07 Dextrose 50%-Water Inj 50 Ml Syringe IV 07/14/24 02:06 Q15MIN PRN BG <50 OR BG <70 & pt unresponsive Divalproex Sodium 250 mg 06/14/24 14:00 06/18/24 05:16 Divalproex Sod Ec 125 Mg Tabec PO 07/14/24 13:59 250 mg TID ENZO Administration Furosemide 20 mg 06/16/24 09:00 Furosemide Inj 10 Mg/Ml Vial 2 Ml IVP 07/16/24 08:59 QDAY ENZO Glucagon 1 mg 06/14/24 02:07 Glucagon Inj 1 Mg Vial IM Q15MIN PRN BG <70, and no IV access Guaifenesin/Dextromethorphan 1 each 06/18/24 11:30 06/18/24 11:52 Guaifenesin/Dm Tablet PO 07/18/24 11:29 1 each BID ENZO Administration Ceftriaxone Sodium/Dextrose 50 mls @ 100 mls/hr 06/13/24 22:16 06/18/24 09:11 Rocephin/D5w 1gm Iv Premix IV 06/20/24 22:15 100 mls/hr QDAY ENZO Administration Azithromycin 500 mg/ Sodium 250 mls @ 250 mls/hr 06/14/24 21:00 06/17/24 20:38 Chloride IV 06/21/24 20:59 250 mls/hr QDAY@2100 ENZO Administration Sodium Chloride 1,000 mls @ 100 mls/hr 06/18/24 09:41 06/18/24 09:46 Ns IV 06/20/24 01:40 100 mls/hr .Q10H ENZO Administration Insulin Human Lispro 0 unit 06/14/24 10:45 06/18/24 11:52 Insulin Lispro (Admelog) 1 Unit/0.01 Ml Unit SC 07/14/24 10:44 2 unit TIDACHS ENZO Administration Protocol Ipratropium [place] 0.5 mg 06/14/24 13:00 06/18/24 12:22 Ipratropium Rt 0.5 Mg/ 2.5 Ml Nebu INH 07/14/24 12:59 0.5 mg Q6HRRT ENOZ Administration Ipratropium [place] 0.5 mg 06/14/24 14:42 06/17/24 21:35 Ipratropium Rt 0.5 Mg/ 2.5 Ml Nebu INH 07/14/24 14:59 0.5 mg Q4HRRT PRN Administration SHORTNESS OF BREATH Protocol Levalbuterol HCl 1.25 mg 06/14/24 19:00 06/18/24 12:22 Levalbuterol Rt 1.25 Mg/0.5 Ml Nebu INH 07/14/24 18:59 1.25 mg Q6HRRT ENZO Administration Levalbuterol HCl 1.25 mg 06/14/24 14:43 06/17/24 21:35 Levalbuterol Rt 1.25 Mg/0.5 Ml Nebu INH 07/14/24 14:59 1.25 mg Q4HRRT PRN Administration WHEEZING Protocol Levothyroxine Sodium 75 mcg 06/14/24 06:00 06/18/24 05:16 Levothyroxine Sodium 25 Mcg Tablet PO 07/14/24 05:59 75 mcg ACBR ENZO Administration Magnesium Hydroxide 30 ml 06/14/24 01:50 Milk Of Magnesia Susp 30 Ml Udc PO 07/14/24 01:49 QDAY PRN Constipation > 3 days Protocol Methylprednisolone Sodium Succinate 40 mg 06/17/24 21:00 06/18/24 09:11 Methylprednisolone Sod Succ 40 Mg Vial IVP 06/24/24 20:59 40 mg BID ENZO Administration Metoprolol Succinate 100 mg 06/15/24 09:00 06/18/24 09:12 Metoprolol Succinate Xl 25 Mg Tabcr PO 07/15/24 08:59 100 mg QDAY ENZO Administration Oseltamivir Phosphate 75 mg 06/13/24 22:15 06/18/24 09:12 Oseltamivir 75 Mg Capsule PO 06/20/24 22:14 75 mg BID ENZO Administration Sennosides 1 tab 06/14/24 09:00 06/18/24 09:12 Senna Tablet PO 07/14/24 08:59 1 tab QDAY ENZO Administration Protocol Sodium Chloride 1 spray 06/14/24 02:56 Saline Nasal 45 Ml Btl NASAL 07/14/24 02:55 PRN PRN CONGESTION Sodium Chloride 3 ml 06/14/24 10:34 Sodium Chloride Rt [place] 0.9% 3 Ml Nebu INH 07/14/24 10:33 PRN PRN SOLN Plan 73-year-old female with a past medical history significant for COPD not on home O2, essential hypertension, atrial fibrillation on Eliquis, schizoaffective disorder, hypothyroidism and 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 Patient will be admitted for treatment and management of A-fib with RVR secondary to influenza A infection. #Atrial fibrillation with RVR?chronic persistent on Eliquis?resolved Echo shows EF 55% Keep potassium above 4 and magnesium above 2 Continue with metoprolol Continue with Eliquis #Influenza A infection #Acute hypoxic respiratory failure 3. COPD not on home O2 4. Essential hypertension 5. Ywv-[id number]-bmcenycgw type II 6. Hyperlipidemia 7. Hypothyroidism 8. Schizoaffective disorder 9. Chronic CVA 10. 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 Normocytic anemia 12. Thrombocytopenia Continue management per primary team Case discussed with attending kettle fry cook operator Dr. Erik Castellanos MD PGY3
[2024-06-18] MEDS: ATORVASTATIN CALCIUM 20 MG TABLET 40 MG PO (20:23)
[2024-06-18] MEDS: AZITHROMYCIN INJ 500 MG in SODIUM CHLORIDE 0.9% 250 ML 250 ML 250 MG IV (20:24)
[2024-06-19] VITALS (11 sets, daily range): BP systolic 95–117; BP diastolic 75–88; PULSE 92–111; RESP 16–97; TEMP 36–36.2; O2SAT 90–100
[2024-06-19] MEDS: IPRATROPIUM RT 0.5 MG/ 2.5 ML NEBU INH ×3 (00:05→13:47)
[2024-06-19] MEDS: LEVALBUTEROL RT 1.25 MG/0.5 ML NEBU INH ×3 (00:05→13:47)
[2024-06-19] MEDS: BENZONATATE 100 MG CAPSULE PO ×2 (05:27→13:25)
[2024-06-19] MEDS: LEVOTHYROXINE SODIUM 25 MCG TABLET 75 MCG PO (05:27)
[2024-06-19] MEDS: DIVALPROEX SOD EC 125 MG TABEC 250 MG PO ×2 (05:27→13:25)
[2024-06-19] MEDS: SODIUM CHLORIDE 0.9% 1000 ML 1,000 ML 100 ML IV (05:27)
[2024-06-19 06:18] LABS: Basophils # (Auto) 0.1 Thou/mm3 (0.0-0.2); Basophils % (Auto) 1 % (0-2.5); Eosinophils % (Auto) 0 % (0-10); Hematocrit 29.5 % (36.0-46.0); Hemoglobin 9.7 g/dL (12.0-16.0); Immature Granulocytes % (Auto) 4 % (0-0); Immature Granulocytes Auto 0.51 Thou/mm3 (0.00-0.00); Lymphocytes # (Auto) 0.9 Thou/mm3 (1.0-4.8); Lymphocytes % (Auto) 7 % (10-50); Mean Corpuscular HGB Conc 32.9 g/dl (31.0-37.0); Mean Corpuscular Hemoglobin 33.9 pg (25.0-35.0); Mean Corpuscular Volume 103 fL (80-100); Monocytes # (Auto) 0.3 Thou/mm3 (0.0-0.8); Monocytes % (Auto) 2 % (0-12); Neutrophils # (Auto) 11.3 Thou/mm3 (1.8-7.7); Neutrophils % (Auto) 87 % (37-80); Nucleated Red Blood Cell # 0.12 Thou/mm3 (0.00-0.00); Nucleated Red Blood Cell % 1 /100 WBC (0); Platelet Count 125 Thou/mm3 (140-440); RDW Standard Deviation 49.6 fL (36.4-46.3); Red Blood Count 2.86 Miln/mm3 (4.00-5.20)
[2024-06-19 06:34] LABS: Valporic Acid (Depak)* 35.1 mg/L (50.0-100.0)
[2024-06-19 06:58] LABS: Alanine Aminotransferase 81 U/L (10-49); Albumin, Serum 3.3 gm/dL (3.4-4.8); Albumin/Globulin Ratio 1.2 (1.2-2.2); Alkaline Phosphatase 94 U/L (46-116); Anion Gap 5 (7-16); Aspartate Amino Transferase 49 U/L (0-34); BUN/Creatinine Ratio 58 Ratio (12-20); Bilirubin,Total 0.7 mg/dL (0.3-1.2); Blood Urea Nitrogen 70 mg/dL (9-23); Calcium 8.3 mg/dL (8.3-10.6); Calcium (Corrected) 8.9 mg/dL (8.5-10.1); Carbon Dioxide 25.7 mMol/L (20.0-31.0); Chloride 99 mMol/L (98-107); Creatinine (Component) 1.2 mg/dL (0.6-1.3); Globulin 2.8 gm/dL (2.3-3.5); Glucose 250 mg/dL (74-106); Osmolality,Calculated 289 (275-295); Sodium 130 mMol/L (136-145); Total Protein 6.1 gm/dL (5.7-8.2); eGFR 48 See Note
[2024-06-19] MEDS: INSULIN LISPRO (AdmeLOG) 1 UNIT/0.01 ML UNIT SC ×2 (07:42→12:03)
[2024-06-19] MEDS: INSULIN GLARGINE (Lantus) 5 UNIT/0.05 ML (PER 5 UNITS) 8 UNIT SC (08:10)
[2024-06-19] MEDS: cefTRIAXone/D5w 1gm IV premix 50 ML IV (08:59)
[2024-06-19] MEDS: OSELTAMIVIR 75 MG CAPSULE PO (08:59)
[2024-06-19] MEDS: ASPIRIN EC 81 MG TABEC PO (09:00)
[2024-06-19] MEDS: METOPROLOL SUCCINATE XL 25 MG TABCR 100 MG PO (09:00)
[2024-06-19] MEDS: SENNA TABLET 1 TAB PO (09:00)
[2024-06-19] MEDS: APIXABAN 2.5 MG TABLET 5 MG PO (09:01)
[2024-06-19] MEDS: guaiFENesin/DM TABLET 1 EACH PO (09:05)
--- NOTE | 2024-06-19 10:15 | PC.SS ---
SS was informed by physician resident, Dr. Burgos pt will be requiring a CPAP at [facility]. Pt is from [facility]. SS spoke to Luul at [facility] who is requesting Bipap/CPAP settings to order CPAP at the facility. SS has sent settings to [facility] using [employer]. Pt is possible dc for today. Randal SCHMIDT is aware.
--- NOTE | 2024-06-19 10:49 | PC.SS ---
Update: Patient possible d/c for today. Patient will require C-PAP, SNF updated on DME request.
--- NOTE | 2024-06-19 11:16 | ESDS_ITS ---
<Statement entered by Darline Hebert DO - 06/20/24 08:32> I, Darline Hebert DO, attest that I was physically present for the bender portions of the service and evaluated the patient with the resident and I reviewed and discussed the case with the resident and agree with the resident's findings and plans of care as documented above Planned Discharge Date 06/19/24 DS: Providers Provider Date of admission: 06/13/24 22:13 Primary care physician: Munir Lopez MD Admitting Provider: Domingo Coronado MD Attending Provider on Admission: Darline Hebert DO Consults: 06/14/24 01:34 Consult to Cardiology Routine Comment: Consulting Provider: Estephanie Valencia 06/14/24 02:04 Speech [Referral - CYBER ANALYST Chemical Dependency Professional] Routine Comment: Instructions: Patient has history of CVA since 2019. Oriented to person at baseline. 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 Patient will be admitted for treatment and management of A-fib with RVR secondary to influenza A infection. During hospital stay patient's influenza A infection was managed with Tamiflu completed a course of 5 days. For patient's atrial fibrillation with RVR which is chronic persistent, Dr. Valencia cardiology was consulted recommended starting patient on metoprolol succinate 100 mg daily which provided adequate rate control for the patient's atrial fibrillation as well as resuming patient's home Eliquis. Patient developed acute kidney injury during hospitalization which was managed with IV fluids, renally dose medications, and avoiding nephrotoxins, after which patient's creatinine reached baseline. Patient was found with bilateral wheezing examinations during hospital stay likely secondary to COPD as patient has history of atrial fibrillation was started on levalbuterol and ipratropium scheduled and as needed. Patient was also started on mucolytic's and IV steroids. Patient was also started on CPAP at bedtime. Patient's hypertension was managed by resuming home medication Lasix 20 mg p.o. daily once acute kidney injury resolved. Diabetes was managed with insulin sliding scale and hypoglycemia protocol. Hypothyroidism was managed with patient's home dose of levothyroxine. Patient schizoaffective disorder was managed by resuming patient's home dose of Depakote. Patient history of chronic cerebral vascular accident for which patient's home dose of baby aspirin was resumed. Patient had anemia and thrombocytopenia during hospital stay patient was monitored and recommended outpatient follow-up. At this time patient is medically stable for discharge. Recommend aspirin 81 mg/day instead of aspirin 325 mg as patient is on another blood thinner named Eliquis 5 mg twice daily, you can follow-up with your primary doctor and reconcile medications. Recommend taking metoprolol succinate 100 mg/day. Recommend CPAP at night due to concern for obstructive sleep apnea due to hypoxia. Follow up with Primary care physician with labs within 3-5 days of discharge. If symptoms persist or worsen, return to the Emergency Department. 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 Emilee Richmond MD PGY-1 Status at Discharge Functional status at discharge: uses cane/walker Overall status at discharge: patient is back to baseline Time Spent with Patient Time attestation: Total time spent providing and/or coordinating discharge services: >30min Exam Vital Signs Temp Pulse Resp BP Pulse Ox O2 Del Method O2 Flow Rate 97.0 F 96 20 113/88 H 100 BiPAP 3 06/19/24 04:00 06/19/24 09:00 06/19/24 06:59 06/19/24 09:00 06/19/24 06:59 06/19/24 04:00 06/18/24 19:35 FiO2 30 06/19/24 03:25 Narrative Exam Physical Exam GENERAL: NAD, morbid obese HEENT: Moist mucosa. Eyes open, symmetrical, & clear CARDIO: Heart irregularly irregular, no obvious murmurs, no pain on palpation PULM: Mild coughing/dyspnea, bilateral wheezing GI: Abdomen soft, nondistended, no pain on palpation. BSx4 SKIN/MSK/EXT: Bilateral lower extremities contractures at the ankles, no pain on palpation. Pedal pulses present B/L NEURO: AAOx3, no focal neuro deficits Discharge Plan Plan Patient Disposition: Xfer Skilled Nsg Fac (SNF) Patient condition on transfer: Stable Care Plan Goals: Recommend aspirin 81 mg/day instead of aspirin 325 mg as patient is on another blood thinner named Eliquis 5 mg twice daily, you can follow-up with your primar y doctor and reconcile medications. Recommend taking metoprolol succinate 100 mg/day. Recommend CPAP at night due to concern for obstructive sleep apnea due to hypoxia. Follow up with Primary care physician with labs within 3-5 days of discharge. If symptoms persist or worsen, return to the Emergency Department. Prescriptions/Referrals Prescriptions/Med Rec: New aspirin [Ecotrin Low Strength] 81 mg Tablet,Delayed Release (Dr/Ec) 81 mg PO QDAY 30 Days Qty: 30 0RF atorvastatin 40 mg tablet 40 mg PO HS 30 Days Qty: 30 0RF metoprolol succinate 100 mg tablet extended release 24 hr 100 mg PO QDAY 30 Days Qty: 30 0RF Mucinex Cough-Chest Congest HB 10-200 mg capsule 1 tab-cap PO Q8H PRN (Reason: cough) Qty: 20 0RF Continued levothyroxine 75 mcg Tablet 75 mcg PO QAM Qty: 0 magnesium hydroxide [Milk of Magnesia] 30 ML/CUP suspension 30 ml PO Q72H PRN (Reason: CONSTIPATION) Qty: 0 bisacodyl 10 mg Suppository 10 mg KS Q72H PRN (Reason: Constipation) Qty: 0 Rx Instructions: Insert 10 mg rectally every 72 hours as needed for constipation if MOM ineffective- give as 1 suppository hydrocodone-acetaminophen 5-325 mg Tablet 1 tab PO Q6H PRN (Reason: Pain) Rx Instructions: Give 1 tablet by mouth every 6 hours as needed for breakthrough pain (level 4-10) (Acetaminophen not to exceed 3gm/24hrs) losartan 25 mg tablet 25 mg PO QDAY acetaminophen 325 mg Tablet 650 mg PO Q6H PRN (Reason: Pain) furosemide [Lasix] 20 mg Tablet 20 mg PO BID Fleet Enema 19-7 gram/118 mL Enema 118 ml KS Q72H PRN (Reason: Constipation) metformin 500 mg Tablet 500 mg PO BID promethazine-DM 6.25-15 mg/5 mL Syrup 5 ml PO Q6H PRN (Reason: Cough) folic acid 1 mg Tablet 1 mg PO QDAY nystatin 100,000 unit/gram Powder 1 applic TOPICAL QDAY Rx Instructions: apply to fungal rash under neck divalproex [Depakote ER] 250 mg Tablet Extended Release 24 Hr 250 mg PO TID ferrous sulfate 27 mg iron Tablet 25 mg PO BID Eliquis 5 mg Tablet 5 mg PO BID cyanocobalamin (vitamin B-12) 1,000 mcg Capsule 2,000 mcg PO QDAY ipratropium-albuterol 0.5 mg-3 mg(2.5 mg base)/3 mL solution for nebulization 3 ml INH [id number] PRN (Reason: shortness of breath or wheezing) rosuvastatin 40 mg tablet 40 mg PO HS calcium acetate [Calphron] 667 mg tablet 667 mg PO TID Rx Instructions: with meals Discontinued aspirin 325 MG tablet 325 mg PO QDAY Qty: 0 metoprolol tartrate 50 mg tablet 50 mg PO BID Referrals: Munir Lopez MD [Primary Care Provider] - Patient/Caregiver Discharge Instructions Education Materials: Understanding Atrial Fibrillation Print Language: Indonesian Stand Alone Forms: [employer] Award Info., Patient Portal Info Letter Discharge Order Discharge Orders: Discharge (Routine); Ordered 06/19/24 Ordered By: Lino Richmond Quality Discharge Quality Measures VTE prophylaxis
--- NOTE | 2024-06-19 13:54 | PC.SS ---
Updated clinicals submitted to [facility] on [facility].
--- NOTE | 2024-06-19 14:48 | PC.SS ---
[employer]ER contacted [facility] to schedule ambulance transport for 05:30 pm. Preferred vendor [employer]. Reference number [id number]. Response pending.
--- NOTE | 2024-06-19 14:54 | PC.SS ---
Dispatch confirmed obtaining authorization from [facility] for 05:30 pm transport. INVESTIGATIVE RESEARCH SPECIALIST updated patient's daughter, bedside nurse and SNF.
--- NOTE | 2024-06-19 15:09 | PC.SS ---
Rounding Note: Plan is to D/C patient to SNF today.
--- NOTE | 2024-06-19 15:17 | PC.SS ---
NYLON MENDER received phone call from [facility] confirming transport pickle water pump operator time for 05:30 pm. NYLON MENDER informed [facility] that transport has been scheduled. NYLON MENDER followed up with [facility] staff to disclose situation. [facility] informed NYLON MENDER that notes reflect preferred vendor is [facility]. [facility] to follow up with conflicting transporters and update NYLON MENDER with resolution.
--- NOTE | 2024-06-19 16:21 | ESPR_ITS ---
<Statement entered by Estephanie Valencia MD - 06/21/24 13:07> The patient is evaluated by me along with resident physician appears to be clinically doing well not have any chest pain shortness of breath A-fib rate controlled well with current regimen agree with the treatment plan recommendations as documented by PGY 2 Dr. Jean Paul Castellanos. Documentation for date of: 06/19/24 Subjective Subjective Interval history: Patient seen and assessed at bedside. Patient continues to improve. Saturating well on 3 L nasal cannula. Patient's heart rate in the low 100s. Patient currently rate controlled. Exam Vital Signs Temp Pulse Resp BP Pulse Ox O2 Del Method O2 Flow Rate 97.1 F 100 21 H 114/86 H 100 Nasal Cannula 2 06/19/24 12:00 06/19/24 15:56 06/19/24 13:49 06/19/24 12:00 06/19/24 13:49 06/19/24 12:00 06/19/24 13:49 FiO2 30 06/19/24 09:00 Narrative Exam GENERAL: NAD, laying in bed, obese, AO x 1. CARDIO: Irregularly irregular, no obvious murmurs, no pain on palpation PULM: Slight rales on auscultation bilateral lower lobes. No increased work of breathing. GI: Abdomen soft, nondistended, no pain on palpation. BSx4 EXT: Bilateral lower extremities contractures at the ankles, no pain on palpation. Objective Labs 06/19/24 05:15 06/19/24 05:15 Labs: Laboratory Results - last 24 hr 06/14/24 06/19/24 05:50 05:15 WBC 13.0 H RBC 2.86 L Hgb 9.7 L Hct 29.5 L MCV 103 H MCH 33.9 MCHC 32.9 RDW Std Deviation 49.6 H Plt Count 125 L Neut % (Auto) 87 H Lymph % (Auto) 7 L [place] % (Auto) 2 Eos % (Auto) 0 Baso % (Auto) 1 Neut # (Auto) 11.3 H Lymph # (Auto) 0.9 L [place] # (Auto) 0.3 Eos # (Auto) 0.0 Baso # (Auto) 0.1 Immature Gran # (Auto) 0.51 H Absolute Nucleated RBC 0.12 H Immature Gran % 4 H Nucleated RBC % 1 H Sodium 130 L Potassium 5.0 Chloride 99 Carbon Dioxide 25.7 Anion Gap 5 L BUN 70 H Creatinine 1.2 Estim Creat Clear Calc 44.0 L eGFR 48 L BUN/Creatinine Ratio 58 H Glucose 250 H D Calculated Osmolality 289 Calcium 8.3 Corrected Calcium 8.9 Total Bilirubin 0.7 AST 49 H ALT 81 H Alkaline Phosphatase 94 Total Protein 6.1 Albumin 3.3 L Globulin 2.8 Albumin/Globulin Ratio 1.2 Valproic Acid 35.1 L ABG Interpretation ABG results: 06/15/24 12:07 ABG pH 7.35 ABG pCO2 47 ABG pO2 71 L ABG HCO3 26 ABG O2 Saturation 95 ABG Base Excess 0 Quality Measures Quality Measures VTE prophylaxis Advance care planning discussed with:: patient Assessment & Plan Assessment Current Active Medications: Generic Name Dose Route Start Last Admin Trade Name Freq PRN Reason Stop Dose Admin Acetaminophen 1,000 mg 06/15/24 09:07 Acetaminophen 500 Mg Tablet PO 07/13/24 22:12 Q6H PRN Fever >100.3 or pain Apixaban 5 mg 06/14/24 21:00 06/19/24 09:01 Apixaban 2.5 Mg Tablet PO 07/14/24 20:59 5 mg BID ENZO Administration Aspirin 81 mg 06/14/24 09:00 06/19/24 09:00 Aspirin Ec 81 Mg Tabec PO 07/14/24 08:59 81 mg QDAY ENZO Administration Atorvastatin Calcium 40 mg 06/14/24 21:00 06/18/24 20:23 Atorvastatin Calcium 20 Mg Tablet PO 07/14/24 20:59 40 mg HS ENZO Administration Benzonatate 100 mg 06/18/24 11:30 06/19/24 13:25 Benzonatate 100 Mg Capsule PO 07/18/24 11:29 100 mg Q8HR ENZO Administration Protocol Dextrose 50 ml 06/14/24 02:07 Dextrose 50%-Water Inj 50 Ml Syringe IV 07/14/24 02:06 Q15MIN PRN BG <50 OR BG <70 & pt unresponsive Divalproex Sodium 250 mg 06/14/24 14:00 06/19/24 13:25 Divalproex Sod Ec 125 Mg Tabec PO 07/14/24 13:59 250 mg TID ENZO Administration Furosemide 20 mg 06/16/24 09:00 Furosemide Inj 10 Mg/Ml Vial 2 Ml IVP 07/16/24 08:59 QDAY ENZO Glucagon 1 mg 06/14/24 02:07 Glucagon Inj 1 Mg Vial IM Q15MIN PRN BG <70, and no IV access Guaifenesin/Dextromethorphan 1 each 06/18/24 11:30 06/19/24 09:05 Guaifenesin/Dm Tablet PO 07/18/24 11:29 1 each BID ENZO Administration Ceftriaxone Sodium/Dextrose 50 mls @ 100 mls/hr 06/13/24 22:16 06/19/24 08:59 Rocephin/D5w 1gm Iv Premix IV 06/20/24 22:15 100 mls/hr QDAY ENZO Administration Sodium Chloride 1,000 mls @ 100 mls/hr 06/18/24 09:41 06/19/24 05:27 Ns IV 06/20/24 01:40 100 mls/hr .Q10H ENZO Administration Insulin Glargine 8 unit 06/19/24 09:00 06/19/24 08:10 Insulin Glargine (Lantus) 5 Unit/0.05 Ml (Per 5 Units) SC 07/19/24 08:59 8 unit QDAY ENZO Administration Insulin Human Lispro 0 unit 06/14/24 10:45 06/19/24 12:03 Insulin Lispro (Admelog) 1 Unit/0.01 Ml Unit SC 07/14/24 10:44 2 unit TIDACHS ENZO Administration Protocol Ipratropium [place] 0.5 mg 06/14/24 13:00 06/19/24 13:47 Ipratropium Rt 0.5 Mg/ 2.5 Ml Nebu INH 07/14/24 12:59 0.5 mg Q6HRRT EZNO Administration Ipratropium [place] 0.5 mg 06/14/24 14:42 06/17/24 21:35 Ipratropium Rt 0.5 Mg/ 2.5 Ml Nebu INH 07/14/24 14:59 0.5 mg Q4HRRT PRN Administration SHORTNESS OF BREATH Protocol Levalbuterol HCl 1.25 mg 06/14/24 19:00 06/19/24 13:47 Levalbuterol Rt 1.25 Mg/0.5 Ml Nebu INH 07/14/24 18:59 1.25 mg Q6HRRT ENOZ Administration Levalbuterol HCl 1.25 mg 06/14/24 14:43 06/17/24 21:35 Levalbuterol Rt 1.25 Mg/0.5 Ml Nebu INH 07/14/24 14:59 1.25 mg Q4HRRT PRN Administration WHEEZING Protocol Levothyroxine Sodium 75 mcg 06/14/24 06:00 06/19/24 05:27 Levothyroxine Sodium 25 Mcg Tablet PO 07/14/24 05:59 75 mcg ACBR ENZO Administration Magnesium Hydroxide 30 ml 06/14/24 01:50 Milk Of Magnesia Susp 30 Ml Udc PO 07/14/24 01:49 QDAY PRN Constipation > 3 days Protocol Methylprednisolone Sodium Succinate 40 mg 06/17/24 21:00 06/19/24 08:59 Methylprednisolone Sod Succ 40 Mg Vial IVP 06/24/24 20:59 40 mg BID ENZO Administration Metoprolol Succinate 100 mg 06/15/24 09:00 06/19/24 09:00 Metoprolol Succinate Xl 25 Mg Tabcr PO 07/15/24 08:59 100 mg QDAY ENZO Administration Sennosides 1 tab 06/14/24 09:00 06/19/24 09:00 Senna Tablet PO 07/14/24 08:59 1 tab QDAY ENZO Administration Protocol Sodium Chloride 1 spray 06/14/24 02:56 Saline Nasal 45 Ml Btl NASAL 07/14/24 02:55 PRN PRN CONGESTION Sodium Chloride 3 ml 06/14/24 10:34 Sodium Chloride Rt Shraddha 0.9% 3 Ml Nebu INH 07/14/24 10:33 PRN PRN SOLN Plan 73-year-old female with a past medical history significant for COPD not on home O2, essential hypertension, atrial fibrillation on Eliquis, schizoaffective disorder, hypothyroidism and 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 Patient will be admitted for treatment and management of A-fib with RVR secondary to influenza A infection. #Atrial fibrillation with RVR?chronic persistent on Eliquis?resolved Echo shows EF 55% Keep potassium above 4 and magnesium above 2 Continue with metoprolol succinate 100 mg daily for rate control. Continue with Eliquis #Influenza A infection #Acute hypoxic respiratory failure 3. COPD not on home O2 4. Essential hypertension 5. Jak-kpyjvxu-vizhcysfd type II 6. Hyperlipidemia 7. Hypothyroidism 8. Schizoaffective disorder 9. Chronic CVA 10. 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 Normocytic anemia 12. Thrombocytopenia Continue management per primary team Case discussed with attending guide delegate Dr. Erik Castellanos MD PGY3
== END 2024-06-19 17:24 | disposition skilled nursing facility (03) | DRG 308 ==
LOC: SERX 21:01 → SERHOLD 22:41 → S2NX 06-14 01:09
PROVIDERS: Emergency Medicine; Student in an Organized Health Care Education/Training Program; Admitting Provider Internal Medicine; Emergency Provider Emergency Medicine; PCP Family Medicine; Visit Provider Internal Medicine
DX: I48.19 Other persistent atrial fibrillation (principal); J10.08 Influenza due to other identified influenza virus with other specified pneumonia; J44.1 Chronic obstructive pulmonary disease with (acute) exacerbation; M84.452A Pathological fracture, left femur, initial encounter for fracture; N17.9 Acute kidney failure, unspecified; J10.1 Influenza due to other identified influenza virus with other respiratory manifestations; Z79.01 Long term (current) use of anticoagulants; I25.10 Atherosclerotic heart disease of native coronary artery without angina pectoris; F25.9 Schizoaffective disorder, unspecified; E11.9 Type 2 diabetes mellitus without complications; E03.9 Hypothyroidism, unspecified; I10 Essential (primary) hypertension; Z74.01 Bed confinement status; E78.5 Hyperlipidemia, unspecified; Z79.84 Long term (current) use of oral hypoglycemic drugs; D64.9 Anemia, unspecified; D69.6 Thrombocytopenia, unspecified; Z86.73 Personal history of transient ischemic attack (TIA), and cerebral infarction without residual deficits; M24.571 Contracture, right ankle; M24.572 Contracture, left ankle; I34.0 Nonrheumatic mitral (valve) insufficiency
CPT/HCPCS: 36415; 36600; 71045; 80048; 80053; 80061; 80164; 81001; 82803; 83036; 83605; 83690; 83735; 83880; 84145; 84439; 84443; 84484; 85025; 85610; 85730; 87040; 87081; 87086; 87400; 87811; 93005; 93306; 94640; 94660; 94667; 96365; 96366; 96367; 99291; J0456; J0696; J1815; J2919; J3475; J3490; J7030; J7050; A9270

== ENCOUNTER 2024-07-29 10:11 | Emergency (ER) | payer MEDICARE, MEDICAID, SELFPAY ==
[2024-07-29 10:23] VITALS: PULSE 120; RESP 18; O2SAT 97
--- NOTE | 2024-07-29 10:28 | PC.NURSE ---
BAO FROM [facility] FOR A.FIB RVR. PT DOES HAVE HX OF A.FIB. PT WAS ON 2L O2 AT SNF, PT DOES HAVE HX OF COPD. PT CURSING AT STAFF, TELLING STAFF PUT ME BACK DOWN BITCH . DENIES PAIN OR CARDIACT SYMPTOMS AT THIS TIME. PT IS HYPERTENSIVE ON TELE, AND HR IS IN 140S ON TELE. AWAITING PROVIDER EVALUATION. CALL RICARDO IN REACH.
[2024-07-29 10:40] VITALS: BP 139/109; PULSE 124; RESP 16; TEMP 36.8; O2SAT 96
--- NOTE | 2024-07-29 10:41 | EKG_ITS ---
[facility] Test Date: 2024-07-29 Pat Name: LAYTON ROA Department: Room: - Gender: Female Head Of Sales And Marketing: : 1950 Requested By: ED Temporary Provider Order Number: [id number] Reading MD: ED Temporary Provider Measurements Intervals [place] Rate: 133 P: WI: QRS: 40 QRSD: 75 T: -30 QT: 308 QTc: 458 Interpretive Statements ATRIAL FIBRILLATION WITH RAPID VENTRICULAR RESPONSE LOW QRS VOLTAGE IN PRECORDIAL LEADS [QRS DEFLECTION < 1.0 mV IN CHEST LEADS] NONSPECIFIC ST & T-WAVE ABNORMALITY Compared to ECG 06/13/2024 17:23:07 Low QRS voltage now present Possible ischemia no longer present T-wave abnormality still present /store/S0/[id number]
--- NOTE | 2024-07-29 11:39 | PD.EDADULT ---
ED General RME/HPI General Chief complaint: Arrhythmia/Palpitations Stated complaint: AFIB Time Seen by Provider: 07/29/24 10:53 Arrival date/time: 07/29/24 10:11 RME / HPI RME / HPI narrative: Patient is a 73 years old female with PMH of bipolar disorder, chronic Afib, HTN, HLD, dementia, schizoaffective disorder presented to the ED due to high heart rate from SNF. Patient does not want to communicate and reports she does not know why she is here. Per daughter at the bedside, SNF stuff found her having high heart rate and informed her about transfer top the ED. She reports her mother has extensive psychiatric history and is hard to deal with. She reported that patient is followed by Dr Valencia for cardiac problems. She is on metoprolol and eliquis for Afib. Patient does not want to talk and demands being discharged. Related Data Home Medications ?Medication ?Instructions ?Recorded ?Confirmed levothyroxine 75 mcg tablet 75 mcg PO QAM THYROID ##0 08/13/13 06/14/24 bisacodyl 10 mg rectal suppository 10 mg CO Q72H PRN Constipation #0 10/07/14 06/14/24 ea magnesium hydroxide 400 mg/5 mL 30 ml PO Q72H PRN CONSTIPATION #0 10/07/14 06/14/24 oral suspension (Milk of Magnesia) mL hydrocodone 5 mg-acetaminophen 325 1 tab PO Q6H PRN Pain 10/02/19 06/14/24 mg tablet acetaminophen 325 mg tablet 650 mg PO Q6H PRN Pain 04/30/21 06/14/24 furosemide 20 mg tablet (Lasix) 20 mg PO BID 10/21/21 06/14/24 sodium phosphates 19 gram-7 118 ml CO Q72H PRN Constipation 11/12/21 06/14/24 gram/118 mL enema (Fleet Enema) losartan 25 mg tablet 25 mg PO QDAY 12/18/21 06/14/24 apixaban 5 mg tablet (Eliquis) 5 mg PO BID 06/14/24 06/14/24 calcium acetate 667 mg tablet 667 mg PO TID 06/14/24 06/14/24 (Calphron) cyanocobalamin (vitamin B-12) 2,000 mcg PO QDAY 06/14/24 06/14/24 1,000 mcg capsule divalproex 250 mg tablet,extended 250 mg PO TID 06/14/24 06/14/24 release 24 hr (Depakote ER) ferrous sulfate 27 mg iron tablet 25 mg PO BID 06/14/24 06/14/24 folic acid 1 mg tablet 1 mg PO QDAY 06/14/24 06/14/24 ipratropium 0.5 mg-albuterol 3 mg 3 ml INH [id number] PRN shortness of 06/14/24 06/14/24 (2.5 mg base)/3 mL nebulization breath or wheezing soln metformin 500 mg tablet 500 mg PO BID 06/14/24 06/14/24 nystatin 100,000 unit/gram topical 1 applic topical QDAY 06/14/24 06/14/24 powder promethazine-DM 6.25 mg-15 mg/5 mL 5 ml PO Q6H PRN Cough 06/14/24 06/14/24 oral syrup rosuvastatin 40 mg tablet 40 mg PO HS 06/14/24 06/14/24 Previous Rx's ?Medication ?Instructions ?Recorded dextromethorphan-guaifenesin 10 1 tab-cap PO Q8H PRN cough #20 caps 06/19/24 mg-200 mg capsule (Mucinex Cough-Chest Congestion HBP) Allergies Allergy/AdvReac Type Severity Reaction Status Date / Time iodine Allergy Severe IODINE Verified 07/29/24 10:28 CONTRAST - SWELLS LIKE A STRAWBERRY Review of Systems Review of Systems Systems Reviewed: All systems reviewed, normal except as documented ED Exam Narrative Physical exam: Refused by patient, limited exam. Gen: Well-developed obese female not in distress. HEENT: NCAT, MMM, anicteric conjunctivae. CVS: refused exam. Resp: Not in distress, refused exam. Abd: refused exam. MSK: No visual edema or rash. Neuro: not cooperative. Exam is limited. Was able to move all 4 extremities. No facial droop noticed. Course Course Course Narrative: Telemonitor reading Afib RVR at 130-140 BPM. EKG showed Afib RVR 133 BPM. Given metoprolol tartrate 50 mg, HR improved to 100-110 BPM. Quality Measures none Orders Category Date Time Status EKG (ED ONLY) *Do not use* NOW Care 07/29/24 10:41 Completed EKG (ED Only) Stat Exams 07/29/24 10:41 Draft Metoprolol Tartrate [Lopressor] Med 07/29/24 11:36 Discontinued 50 mg PO X1 ONE Vital Signs Vital signs: Vital Signs Temperature 98.3 F 07/29/24 10:40 Pulse Rate 124 H 07/29/24 10:40 Respiratory Rate 16 07/29/24 10:40 Blood Pressure 139/109 H 07/29/24 10:40 Pulse Oximetry (%) 96 07/29/24 10:40 Oxygen Delivery Method Nasal Cannula 07/29/24 10:40 Oxygen Flow Rate 2 07/29/24 10:40 Procedures -ED EKG Interpretation Afib RVR 133 BPM.: Date of EK07/29/24 Time of EK:15 Rate: 133 Interpretation: Reviewed by me EKG Impression: Atrial fibrillation (RVR) MDM Patient data External records reviewed:: [facility] previous records, EMS form and Care Home records Clinical information provided by:: patient, EMS and family Social determinants that could affect healthcare access:: mental health Patient has the following chronic illnesses:: Chronic afib. How is presenting disease/condition affected by chronic disease/condition?: caused by Evaluation data The following diagnostics were reviewed and interpreted by me:: EKG tracing(s) Lab and/or radiology exams considered but not ordered:: echo, troponin I Interpretation Summary: Afib with RVR, asymptomatic Medications Medications considered but not ordered:: Amiodarone, diltiazem, digoxin Medication administrations:: Medication Administration History Discontinued Medications Metoprolol Tartrate (Metoprolol Tartrate 25 Mg Tablet) 50 mg PO X1 ONE Stop: 07/29/24 11:37 Last Admin: 07/29/24 11:45 Dose: 50 mg Documented By: TM Given metoprolol tartrate 50 mg PO. Consultations Consultation(s) initiated? (list below): No Diagnosis Differential Diagnosis ED Complaint MDM: Afib w/ RVR, Aflutter, SVT Most likely diagnosis given after review of the tests above:: Afib with RVR. Admission Indicated Admission indicated?: not indicated Explain why admission is indicated or not indicated:: Patient has chronic Afib and is on Eliquis and metoprolol XL, regularly followed by cardiology. HR has improved with metoprolol tartrate. Patient does not need to be admitted, she will need to follow up with cardiology outpatient and possible readjust her home medications. Admission Request Was there a request for admission?: No Disposition Plan Disposition Plan: Discharge Discharge Attestation Discharge Attestation: The patient and all family members were given an opportunity to ask questions and understood the discharge instructions. Discharge instructions specifically effects, indications for sooner follow up or return to the emergency department, and the expected course of current diagnosis. Patient condition: Stable Medical Decision Making Differential Diagnosis Differential Diagnosis: Afib w/ RVR, Aflutter, SVT Discharge Plan Plan Patient Disposition: Xfer Skilled Nsg Fac (SNF) Patient condition on transfer: Stable Prescriptions/Referrals Prescriptions/Med Rec: No Action levothyroxine 75 mcg Tablet 75 mcg PO QAM Qty: 0 magnesium hydroxide [Milk of Magnesia] 30 ML/CUP suspension 30 ml PO Q72H PRN (Reason: CONSTIPATION) Qty: 0 bisacodyl 10 mg Suppository 10 mg CO Q72H PRN (Reason: Constipation) Qty: 0 Rx Instructions: Insert 10 mg rectally every 72 hours as needed for constipation if MOM ineffective- give as 1 suppository hydrocodone-acetaminophen 5-325 mg Tablet 1 tab PO Q6H PRN (Reason: Pain) Rx Instructions: Give 1 tablet by mouth every 6 hours as needed for breakthrough pain (level 4-10) (Acetaminophen not to exceed 3gm/24hrs) losartan 25 mg tablet 25 mg PO QDAY acetaminophen 325 mg Tablet 650 mg PO Q6H PRN (Reason: Pain) furosemide [Lasix] 20 mg Tablet 20 mg PO BID Fleet Enema 19-7 gram/118 mL Enema 118 ml CO Q72H PRN (Reason: Constipation) metformin 500 mg Tablet 500 mg PO BID promethazine-DM 6.25-15 mg/5 mL Syrup 5 ml PO Q6H PRN (Reason: Cough) folic acid 1 mg Tablet 1 mg PO QDAY nystatin 100,000 unit/gram Powder 1 applic TOPICAL QDAY Rx Instructions: apply to fungal rash under neck divalproex [Depakote ER] 250 mg Tablet Extended Release 24 Hr 250 mg PO TID ferrous sulfate 27 mg iron Tablet 25 mg PO BID Eliquis 5 mg Tablet 5 mg PO BID cyanocobalamin (vitamin B-12) 1,000 mcg Capsule 2,000 mcg PO QDAY ipratropium-albuterol 0.5 mg-3 mg(2.5 mg base)/3 mL solution for nebulization 3 ml INH [id number] PRN (Reason: shortness of breath or wheezing) rosuvastatin 40 mg tablet 40 mg PO HS calcium acetate [Calphron] 667 mg tablet 667 mg PO TID Rx Instructions: with meals Mucinex Cough-Chest Congest HB 10-200 mg capsule 1 tab-cap PO Q8H PRN (Reason: cough) Qty: 20 0RF Referrals: Kieran Henson MD [Primary Care Provider] - In 1 week Problem List Clinical Impression: Atrial fibrillation with RVR Patient/Caregiver Discharge Instructions Additional Instructions: Continue home medications as prescribed. Follow up with PCP and cardiology within 2 weeks. Return to the ED if symptoms recur or worsen. Print Language: Telugu Stand Alone Forms: [employer] Info., Patient Portal Info Letter
[2024-07-29 11:45] VITALS: BP 135/93; PULSE 130
[2024-07-29] MEDS: METOPROLOL TARTRATE 25 MG TABLET 50 MG PO (11:45)
--- NOTE | 2024-07-29 12:00 | PC.NURSE ---
PT MEDICATED W/PO METOPROLOL, W/DAUGHTERS ASSISTANCE. SPOKE W/STAFF FROM [facility] AND PROVIDED UPDATE AT THIS TIME. DAUGHTER REMAINS AT BEDSIDE ATTENTIVE TO PT. WILL CONTINUE W/POC
[2024-07-29 14:09] VITALS: BP 135/93; PULSE 118; RESP 20; TEMP 36.4; O2SAT 96
--- NOTE | 2024-07-29 14:11 | PC.CC ---
Addendum entered by Leah Hernandez 07/29/24 17:12: EMS ETA scheduled for 1814. Original Note: Displayer, Leah informed by Nelsy that patient needs transportation to [facility]. CC contacted [facility] for insurance authorization, reference number: [id number]. Patient is pending transportation.
[2024-07-29 15:35] VITALS: BP 103/71; PULSE 104; RESP 19; TEMP 36.2; O2SAT 96
[2024-07-29 17:19] VITALS: BP 118/69; PULSE 104; RESP 23; TEMP 36.2; O2SAT 97
--- NOTE | 2024-07-29 17:57 | PC.NURSE ---
PT NON-COMPLIANT W/CARE. WHEN STAFF GETS CLOSE PT PUNCHES.
== END 2024-07-29 17:58 | disposition skilled nursing facility (03) ==
PROVIDERS: Emergency Provider Student in an Organized Health Care Education/Training Program; PCP Podiatrist
DX: I48.20 Chronic atrial fibrillation, unspecified (principal); I10 Essential (primary) hypertension; E78.5 Hyperlipidemia, unspecified; F03.93 Unspecified dementia, unspecified severity, with mood disturbance; F25.9 Schizoaffective disorder, unspecified; F31.9 Bipolar disorder, unspecified
CPT/HCPCS: 93005; 99283; A9270